=== PATIENT | female | born 1955 | race Caucasian/White ===

== ENCOUNTER 2023-07-15 12:20 | Emergency (ER) | payer OTHER, SELFPAY ==
[2023-07-15 12:23] VITALS: BP 144/89; PULSE 103; RESP 18; TEMP 36.4; O2SAT 99; BMI 45.7
--- NOTE | 2023-07-15 12:34 | XR_ITS ---
The [address] [address] Patient Name: LUCHO GABRIEL MRN: [id number] date: 1955 Sex: F Assigned Patient Location: ER Current Patient Location: ER Accession/Order Number: [id number] Exam Date: 07/15/2023 12:45 Report Date: 07/15/2023 13:25 At the request of: SHELLI ETIENNE Procedure: XR chest 1V EXAMINATION: XR chest 1V HISTORY: edema COMPARISON: XR abdomen with PA chest 10/16/2019 FINDINGS: LUNGS: Mild opacities within the lateral left lung base obscuring the costophrenic angle. VASCULATURE: No increased pulmonary vasculature. PLEURA: No pneumothorax, effusion, or pleural thickening. CARDIAC: No cardiomegaly or cardiac silhouette abnormality. MEDIASTINUM: No visible mass or adenopathy. BONES: Mechanical fusion of the mid and lower thoracic spine. OTHER: Negative. XR/XR chest 1V IMPRESSION: 1. Mild lingular infiltrates versus atelectasis versus artifact from prominent pericardial fat pad. 2. No findings to suggest pulmonary edema. Electronically authenticated by: ROSIE CONNELLY Date: 07/15/2023 13:25
--- NOTE | 2023-07-15 12:36 | ED.GENADUL1 ---
HPI - General Adult General Chief complaint: Extremity Problem, Nontraumatic Stated complaint: LEG PAIN, BILATERAL Time Seen by Provider: 07/15/23 12:34 Source: patient Mode of arrival: ambulance History of Present Illness HPI narrative: Patient is a 67yo Who is not been out of her wheelchair for the past couple of days, is presenting to the Emergency Room with urinary and stool incontinence and generalized weakness. Patient has not left the house in over a year secondary to fear of COVID. Patient has bilateral lower extremity chronic edema, chronic lower extremity wounds. Patient has extremely foul smelling odor. Patient came in by EMS. . All systems are negative except as noted/marked. All systems reviewed and otherwise negative. . Nurses note and vital signs reviewed and patient is not hypoxic. General: The patient appears well and in no apparent distress. Patient is resting comfortably on cart. Patient is not toxic, lethargic, or listless Skin: Warm, dry, no pallor noted. There is no rash noted. No petechiae, purpura. Head: Normocephalic, atraumatic Eye: Normal conjunctiva, no drainage, EOMI. PERRL Ears, Nose, Mouth, and Throat: oral mucosa is moist. Nares patent. Mouth without vesicles. Cardiovascular: Regular Rate and Rhythm, no murmur, gallop, rub Respiratory: Patient is in no distress, no accessory muscle use, lungs are clear to auscultation, no wheezing, rales or rhonchi Back: non-tender, no CVA tenderness bilaterally to percussion. No CT LS midline pain GI: soft, no tenderness to palpation, no masses appreciated. No rebound, guarding, or rigidity noted. No flank pain bilateral, No distention Musculoskeletal: Patient has full range of motion of all of the extremities, no motor, sensory, or focal neurological deficits Neurological: A&O x3, normal speech Psychiatric: Cooperative Related Data Allergies Allergy/AdvReac Type Severity Reaction Status Date / Time No Known Drug Allergies Allergy Verified 07/15/23 12:28 Exam Constitutional Vital Signs, click to edit/add: Last Vital Signs Temp 97.7 F 07/15/23 17:02 Pulse 95 H 07/15/23 18:55 Resp 18 07/15/23 18:55 BP 106/62 07/15/23 18:55 Pulse Ox 98 07/15/23 18:55 O2 Del Method Room Air 07/15/23 18:55 Course Vital Signs Vital signs: Vital Signs Temperature 97.5 F L 07/15/23 12:23 Pulse Rate 103 H 07/15/23 12:23 Respiratory Rate 18 07/15/23 12:23 Blood Pressure 144/89 H 07/15/23 12:23 Pulse Oximetry 99 07/15/23 12:23 Oxygen Delivery Method Room Air 07/15/23 12:23 Temperature 97.7 F 07/15/23 17:02 Pulse Rate 95 H 07/15/23 18:55 Respiratory Rate 18 07/15/23 18:55 Blood Pressure 106/62 07/15/23 18:55 Pulse Oximetry 98 07/15/23 18:55 Oxygen Delivery Method Room Air 07/15/23 18:55 Medical Decision Making Lab Data Labs: Lab Results 07/15/23 07/15/23 07/15/23 Range/Units 12:43 14:00 17:16 WBC 19.0 H (4.0-11.0) 10^3/uL RBC 5.21 (4.20-5.40) 10^6/uL Hgb 12.6 (12.0-16.0) g/dL Hct 43.1 (36.0-48.0) % MCV 82.7 (81.0-99.0) fL MCH 24.2 L (26.7-34.0) pg MCHC 29.2 L (29.9-35.2) g/dL RDW 18.2 H (11.0-15.0) % Plt Count 571 H (150-450) 10^3/uL MPV 9.5 (9.5-13.5) fL Neut % (Auto) 84.2 H (43.0-75.0) % Lymph % (Auto) 8.2 L (20.5-60.0) % [place] % (Auto) 4.2 (1.7-12.0) % Eos % (Auto) 1.2 (0.9-7.0) % Baso % (Auto) 0.5 (0.2-2.0) % Neut # (Auto) 16.0 H (1.4-6.5) 10^3/uL Lymph # (Auto) 1.6 (1.2-3.8) 10^3/uL [place] # (Auto) 0.8 (0.3-0.8) 10^3/uL Eos # (Auto) 0.2 (0.0-0.7) 10^3/uL Baso # (Auto) 0.1 (0.0-0.1) 10^3/uL Abs Immat Gran (auto) 0.32 H (0.00-0.03) 10^3/uL Imm/Tot Granulo (auto) 1.7 H (0.0-0.5) % VBG pH 7.121 L (7.330-7.430) VBG pCO2 27.7 L (40.0-52.0) mmHg Sodium 131 L 134 L (136-145) mmol/L Potassium 5.7 H 5.4 H (3.5-5.1) mmol/L Chloride 98 102 (98-107) mmol/L Carbon Dioxide 11.8 L 13.1 L (21.0-32.0) mmol/L Anion Gap 26.9 24.3 BUN 121.0 H* 122.0 H* (7.0-18.0) mg/dL Creatinine 6.24 H* 5.59 H* (0.55-1.02) mg/dL Est GFR ( Amer) 8 L 9 L (>=60) Est GFR (Non-Af Amer) 7 L 8 L (>=60) BUN/Creatinine Ratio 19.4 21.8 Glucose 109 H 101 (74-106) mg/dL Calcium 9.3 7.9 L (8.5-10.1) mg/dL Magnesium 2.8 H (1.8-2.4) mg/dL Total Bilirubin 0.4 (0.2-1.0) mg/dL AST 20 (15-37) U/L ALT 23 (14-59) U/L Alkaline Phosphatase 191 H (46-116) U/L Total Creatine Kinase 18 L (26-192) U/L NT-Pro-B Natriuret Pep 560.0 (<=900.0) pg/mL Total Protein 8.4 H (6.4-8.2) g/dL Albumin 2.7 L (3.4-5.0) g/dL Globulin 5.7 g/dL Albumin/Globulin Ratio 0.5 Lipase 709.0 H (73.0-393.0) U/L Urine Color Brown A (YELLOW) Urine Clarity Clear (CLEAR) Urine pH 6.0 (5.0-9.0) Ur Specific [place] 1.015 (1.005-1.025) Urine Protein 100 A (NEG/TRACE) mg/dL Urine Glucose (UA) Negative (NEGATIVE) mg/dL Urine Ketones Trace A (NEGATIVE) mg/dL Urine Occult Blood Large A (NEGATIVE) Urine Nitrite Positive A (NEGATIVE) Urine Bilirubin Negative (NEGATIVE) Urine Urobilinogen 0.2 (0.2-1.0) EU/dL Ur Leukocyte Esterase Moderate A (NEGATIVE) Urine RBC 10-20 A (0-2) #/HPF Urine WBC >100 A (NONE SEEN) #/HPF Ur Squamous Epith Cells Moderate A (NONE/RARE) #/LPF Urine Crystals None seen (None Seen) #/HPF Urine Bacteria Small A (NONE SEEN) #/HPF Urine Casts None seen (NONE SEEN) #/LPF Urine Mucus Trace A (NONE SEEN) Ur Culture Indicated? Yes SARS-CoV-2 (PCR) Negative (NEGATIVE) SARS-CoV-2 RNA (BRITT) Not detected (NOT DETECTE) Discharge Plan Discharge Chief Complaint: Extremity Problem, Nontraumatic Clinical Impression: Decubitus ulcer of right leg, stage 2, Decubitus ulcer of left leg, stage 3, Decubitus ulcer of sacral region, stage 2, Hyponatremia, Metabolic acidosis, Hyperkalemia, Intra-abdominal lymphadenopathy Acute renal failure Qualifiers: Acute renal failure type: unspecified Qualified Code(s): N17.9 - Acute kidney failure, unspecified Patient Disposition: [facility] Time of Disposition Decision: 17:14 Discharge Location: [facility] Condition: Good Mode of Transportation: EMS Discharge Date/Time: 07/15/23 19:28
[2023-07-15 12:51] LABS: Basophils Absolute Auto 0.1 10^3/uL (0.0-0.1); Basophils Percent Auto 0.5 % (0.2-2.0); Eosinophils Absolute Auto 0.2 10^3/uL (0.0-0.7); Eosinophils Percent Auto 1.2 % (0.9-7.0); Hematocrit 43.1 % (36.0-48.0); Hemoglobin 12.6 g/dL (12.0-16.0); Immature Granulocytes Abs Auto 0.32 10^3/uL (0.00-0.03); Immature Granulocytes Pct Auto 1.7 % (0.0-0.5); Lymphocytes Absolute Auto 1.6 10^3/uL (1.2-3.8); Lymphocytes Percent Auto 8.2 % (20.5-60.0); Mean Corpuscular HGB Conc 29.2 g/dL (29.9-35.2); Mean Corpuscular Hemoglobin 24.2 pg (26.7-34.0); Mean Corpuscular Volume 82.7 fL (81.0-99.0); Mean Platelet Volume 9.5 fL (9.5-13.5); Monocytes Absolute Auto 0.8 10^3/uL (0.3-0.8); Monocytes Percent Auto 4.2 % (1.7-12.0); Neutrophils Percent Auto 84.2 % (43.0-75.0); Platelet Count 571 10^3/uL (150-450); Red Blood Count 5.21 10^6/uL (4.20-5.40); Red Cell Distribution Width 18.2 % (11.0-15.0)
[2023-07-15 12:53] LABS: PCO2 VBG 27.7 mmHg (40.0-52.0); pH VBG 7.121 (7.330-7.430)
[2023-07-15] MEDS: 0.9 % SODIUM CHLORIDE 1,000 ML 999 ML IV (12:54)
[2023-07-15 13:14] LABS: Alanine Aminotransferase 23 U/L (14-59); Albumin Globulin Ratio 0.5; Albumin Level 2.7 g/dL (3.4-5.0); Alkaline Phosphatase 191 U/L (46-116); Anion Gap 26.9; Aspartate Amino Transferase 20 U/L (15-37); BUN Creatinine Ratio 19.4; Bilirubin Total 0.4 mg/dL (0.2-1.0); Calcium 9.3 mg/dL (8.5-10.1); Carbon Dioxide 11.8 mmol/L (21.0-32.0); Chloride 98 mmol/L (98-107); Estimated GFR (African America 8 (>=60); Estimated GFR (Non-African Ame 7 (>=60); Globulin 5.7 g/dL; Glucose 109 mg/dL (74-106); Magnesium 2.8 mg/dL (1.8-2.4); Potassium 5.7 mmol/L (3.5-5.1); Sodium 131 mmol/L (136-145); Total Protein 8.4 g/dL (6.4-8.2)
[2023-07-15 13:36] LABS: Creatine Kinase 18 U/L (26-192)
--- NOTE | 2023-07-15 13:39 | W.PM.WC ---
Wound Consult Note Assessment and Plan (1) Decubitus ulcer of right leg, stage 2: (2) Decubitus ulcer of left leg, stage 3: (3) Decubitus ulcer of sacral region, stage 2: Plan Phone call received from Dr. Rodríguez to see patient in emergency department. Patient has been homebound for years and has chronic ulcers on bilateral lower extremities. Upon assessment, patient with large bilateral posterior lower leg ulcers, left worse than right, that are draining and odorous. Bedside RN reports swabs have been taken. Unable to take photos in the emergency department due to technical issues. Patient has lymphedema in both lower extremities, and bilateral feet are puffy and excoriated in creases. Bilateral toenails are elongated and thick. Right posterior lower leg ulcer is large, encompassing almost the entire posterior calf. Marbled wound bed with pink and yellow tissue. Left posterior lower leg ulcer is large as well, encompassing almost entire posterior calf. Marbled wound bed with significant stringy slough tissue to the proximal wound bed. I would recommend Dr. Hoang and Dr. Platt evaluate this patient if a formal surgical debridement is needed. Periwound to both legs has erythema and warmth noted. The ulcers are painful. Anterior legs with cobblestone textured dry skin. Bilateral heels intact. Patient has linear abrasions to bilateral buttocks as well from incontinence and shearing. She reports pain to this area with pressure. Skin blanches slowly at this time. Patient is at risk for developing worsening ulcerations to this area. Discussed plan with patient and her visitors. Educated on skin care, risk of open ulcers, treatment plan at this time, and lymphedema management. Discussed orders with JULIANNE Arreguin. Sent message to Dr. Hoang and Dr. Platt regarding treatment needs as well. Will complete nail care on this patient once she is admitted to the hospital and antibiotics started. Please call [phone] with any questions or concerns.
--- NOTE | 2023-07-15 13:58 | ED_ITS ---
Documented by User: JULIANNE Lira 07/15/23 17:43 HPI - General Adult General Chief complaint: Extremity Problem, Nontraumatic Stated complaint: LEG PAIN, BILATERAL Time Seen by Provider: 07/15/23 12:34 Source: patient Mode of arrival: ambulance History of Present Illness HPI narrative: 67-year-old female who is morbidly obese at 114 kg presents by squad for feeling weak. She mostly sits in a recliner and only uses a walker to get around her house and she states that she has not been out of her house in a little over a year as she was scared about COVID. She does have visitors come in. She states that she does not go outside. She states that she has wounds on both of her legs for about a year. She states that the wounds have been getting worse over the past 3 weeks. She has had watery diarrhea for the past 3 weeks. She has been drinking 2-3 bottles of water a day and has only had a meal a day as she states that she was not very hungry. She is also complaining of rhinorrhea. Sh e states recently she had some acid reflux and left upper quadrant pain, but this has resolved. Denies fever, cough, dizziness, back pain, dysuria, n/v, SOB or CP Related Data Allergies Allergy/AdvReac Type Severity Reaction Status Date / Time No Known Drug Allergies Allergy Verified 07/15/23 12:28 Review of Systems ROS Status of ROS 10 or more systems reviewed and unremarkable except as noted in history and below Exam Narrative Exam Narrative: General: A&Ox3, no distress, talking in full an complete sentences, morbidly obese skin: warm, dry, 10 x 10 cm area to the left mid distal leg with a foul-smelling slough but seems consistent with stage III ulcer, 5 x 10 erythematous area that appears to be stage II ulcer to the right mid distal leg without foul odor, stage II ulcer to the upper buttock area without drainage or foul odor head: normocephalic, atraumatic eyes: EOMI nose: nares patent neck: supple, trachea midline cardiac: +S1/S1. no murmur respiratory: lungs CTA, non-labored, no wheezing, no retractions abdomen: soft, NT extremities: FROM x 4, strength +5/5 neuro: A&Ox3 psych: appropriate mood and affect, cooperative Constitutional Vital Signs, click to edit/add: Last Vital Signs Temp 97.7 F 07/15/23 17:02 Pulse 95 H 07/15/23 18:55 Resp 18 07/15/23 18:55 BP 106/62 07/15/23 18:55 Pulse Ox 98 07/15/23 18:55 O2 Del Method Room Air 07/15/23 18:55 Course Vital Signs Vital signs: Vital Signs Temperature 97.5 F L 07/15/23 12:23 Pulse Rate 103 H 07/15/23 12:23 Respiratory Rate 18 07/15/23 12:23 Blood Pressure 144/89 H 07/15/23 12:23 Pulse Oximetry 99 07/15/23 12:23 Oxygen Delivery Method Room Air 07/15/23 12:23 Temperature 97.7 F 07/15/23 17:02 Pulse Rate 95 H 07/15/23 18:55 Respiratory Rate 18 07/15/23 18:55 Blood Pressure 106/62 07/15/23 18:55 Pulse Oximetry 98 07/15/23 18:55 Oxygen Delivery Method Room Air 07/15/23 18:55 Medical Decision Making MDM Narrative Medical decision making narrative: Wound culture pending from the left leg. Wound nurse came into the ER and suggested to put Santyl to the left leg, bacitracin to the right leg and a Triad cream to the buttocks area. Wound care will be consulted inpatient. Patient is complaining of pain to her legs will be given Dilaudid. Creatinine 6.24, sodium 121 with a potassium of 5.7. She is given IV fluids. She states that she is not aware of any kidney issues. Magnesium 2.8. Last labs on file from 3 years ago. Creatinine at that time was 1.23-2.31, but was 6.08 around this time. She also had elevated LFTs at this time. WBC 19. VBG pH 7.12. Sodium 131, potassium 5.7, bicarb 11.8, creatinine 6.24, glucose 109, magnesium 2.8, alk phos 191, CK 18 with a lipase of 709. Patient given a dose of Lokelma. She is given vanco and Zosyn for the infected left leg ulcer. COVID-negative. UA sample appears contaminated as there is moderate amount of epithelial cells, but she is receiving IV antibiotics for her infection and this will cover her UTI. No other significant lab normalities. She is ordered an additional liter of saline. Nurse informs me that patient stated that she takes tylenol PM every couple hours for 2-3 days. She states that she has been doing this for couple days and usually takes 800 mg Motrin twice a day. Final read of CT abdomen pelvis without contrast shows an obstructing 1 to 2 mm stone in the distal right ureter with minimal right-sided hydronephrosis. This also shows a mild intra- abdominal adenopathy with a differential including infectious/inflammatory process, metastasis, lymphoma or leukemia. Dr. Rodríguez discussed the case with the hospitalist who declines admission and wishes to be transferred to a facility with nephrology. Case discussed with Dr. Davis, hospitalist at [facility], who accepts patient. I attempted to give a full report to the hospitalist, Dr Davis, and he stopped me while I was speaking and did not receive a full report. The only information he received was the patient has been in her house for over a year, acute renal failure and infected ulcer with IV ATBs. Repeat sodium 134, potassium 5.4, creatinine 5.59. Critical care time greater than 35 minutes thats separate from other billable procedures Medical Records Medical records reviewed: Yes I reviewed the patient's medical records Lab Data Labs: Lab Results 07/15/23 07/15/23 07/15/23 Range/Units 12:43 14:00 17:16 WBC 19.0 H (4.0-11.0) 10^3/uL RBC 5.21 (4.20-5.40) 10^6/uL Hgb 12.6 (12.0-16.0) g/dL Hct 43.1 (36.0-48.0) % MCV 82.7 (81.0-99.0) fL MCH 24.2 L (26.7-34.0) pg MCHC 29.2 L (29.9-35.2) g/dL RDW 18.2 H (11.0-15.0) % Plt Count 571 H (150-450) 10^3/uL MPV 9.5 (9.5-13.5) fL Neut % (Auto) 84.2 H (43.0-75.0) % Lymph % (Auto) 8.2 L (20.5-60.0) % [place] % (Auto) 4.2 (1.7-12.0) % Eos % (Auto) 1.2 (0.9-7.0) % Baso % (Auto) 0.5 (0.2-2.0) % Neut # (Auto) 16.0 H (1.4-6.5) 10^3/uL Lymph # (Auto) 1.6 (1.2-3.8) 10^3/uL [place] # (Auto) 0.8 (0.3-0.8) 10^3/uL Eos # (Auto) 0.2 (0.0-0.7) 10^3/uL Baso # (Auto) 0.1 (0.0-0.1) 10^3/uL Abs Immat Gran (auto) 0.32 H (0.00-0.03) 10^3/uL Imm/Tot Granulo (auto) 1.7 H (0.0-0.5) % VBG pH 7.121 L (7.330-7.430) VBG pCO2 27.7 L (40.0-52.0) mmHg Sodium 131 L 134 L (136-145) mmol/L Potassium 5.7 H 5.4 H (3.5-5.1) mmol/L Chloride 98 102 (98-107) mmol/L Carbon Dioxide 11.8 L 13.1 L (21.0-32.0) mmol/L Anion Gap 26.9 24.3 BUN 121.0 H* 122.0 H* (7.0-18.0) mg/dL Creatinine 6.24 H* 5.59 H* (0.55-1.02) mg/dL Est GFR ( Amer) 8 L 9 L (>=60) Est GFR (Non-Af Amer) 7 L 8 L (>=60) BUN/Creatinine Ratio 19.4 21.8 Glucose 109 H 101 (74-106) mg/dL Calcium 9.3 7.9 L (8.5-10.1) mg/dL Magnesium 2.8 H (1.8-2.4) mg/dL Total Bilirubin 0.4 (0.2-1.0) mg/dL AST 20 (15-37) U/L ALT 23 (14-59) U/L Alkaline Phosphatase 191 H (46-116) U/L Total Creatine Kinase 18 L (26-192) U/L NT-Pro-B Natriuret Pep 560.0 (<=900.0) pg/mL Total Protein 8.4 H (6.4-8.2) g/dL Albumin 2.7 L (3.4-5.0) g/dL Globulin 5.7 g/dL Albumin/Globulin Ratio 0.5 Lipase 709.0 H (73.0-393.0) U/L Urine Color Brown A (YELLOW) Urine Clarity Clear (CLEAR) Urine pH 6.0 (5.0-9.0) Ur Specific [place] 1.015 (1.005-1.025) Urine Protein 100 A (NEG/TRACE) mg/dL Urine Glucose (UA) Negative (NEGATIVE) mg/dL Urine Ketones Trace A (NEGATIVE) mg/dL Urine Occult Blood Large A (NEGATIVE) Urine Nitrite Positive A (NEGATIVE) Urine Bilirubin Negative (NEGATIVE) Urine Urobilinogen 0.2 (0.2-1.0) EU/dL Ur Leukocyte Esterase Moderate A (NEGATIVE) Urine RBC 10-20 A (0-2) #/HPF Urine WBC >100 A (NONE SEEN) #/HPF Ur Squamous Epith Cells Moderate A (NONE/RARE) #/LPF Urine Crystals None seen (None Seen) #/HPF Urine Bacteria Small A (NONE SEEN) #/HPF Urine Casts None seen (NONE SEEN) #/LPF Urine Mucus Trace A (NONE SEEN) Ur Culture Indicated? Yes SARS-CoV-2 (PCR) Negative (NEGATIVE) SARS-CoV-2 RNA (BRITT) Not detected (NOT DETECTE) Discharge Plan Discharge Chief Complaint: Extremity Problem, Nontraumatic Clinical Impression: Decubitus ulcer of right leg, stage 2, Decubitus ulcer of left leg, stage 3, Decubitus ulcer of sacral region, stage 2, Hyponatremia, Metabolic acidosis, Hyperkalemia, Intra-abdominal lymphadenopathy, Pyuria, Sepsis Acute renal failure Qualifiers: Acute renal failure type: unspecified Qualified Code(s): N17.9 - Acute kidney failure, unspecified Patient Disposition: [facility] Time of Disposition Decision: 17:14 Discharge Location: [facility] Condition: Serious Mode of Transportation: EMS Discharge Date/Time: 07/15/23 19:28 Documented by User: Sixto Rodríguez MD 07/15/23 20:05 HPI - General Adult General Chief complaint: Extremity Problem, Nontraumatic Stated complaint: LEG PAIN, BILATERAL Time Seen by Provider: 07/15/23 12:34 History of Present Illness HPI narrative: 67-year-old female who is morbidly obese at 114 kg presents by squad for feeling weak. She mostly sits in a recliner and only uses a walker to get around her house and she states that she has not been out of her house in a little over a year as she was scared about COVID. She does have visitors come in. She states that she does not go outside. She states that she has wounds on both of her legs for about a year. She states that the wounds have been getting worse over the past 3 weeks. She has had watery diarrhea for the past 3 weeks. She has been drinking 2-3 bottles of water a day and has only had a meal a day as she states that she was not very hungry. She is also complaining of rhinorrhea. She states recently she had some acid reflux and left upper quadrant pain, but this has resolved. Denies fever, cough, dizziness, back pain, dysuria, n/v, SOB or CP. Patient normally takes 800 mg of Motrin in the morning and in the evening, patient's been taking aspirin and Motrin every 2 hours in the past couple days secondary to leg pain. Patient has had urine in stool incontinence, patient came in by EMS, covered in urine and stool. Related Data Allergies Allergy/AdvReac Type Severity Reaction Status Date / Time No Known Drug Allergies Allergy Verified 07/15/23 12:28 Exam Constitutional Vital Signs, click to edit/add: Last Vital Signs Temp 97.7 F 07/15/23 17:02 Pulse 95 H 07/15/23 18:55 Resp 18 07/15/23 18:55 BP 106/62 09/25/23 18:55 Pulse Ox 98 07/15/23 18:55 O2 Del Method Room Air 07/15/23 18:55 Course Vital Signs Vital signs: Vital Signs Temperature 97.5 F L 07/15/23 12:23 Pulse Rate 103 H 07/15/23 12:23 Respiratory Rate 18 07/15/23 12:23 Blood Pressure 144/89 H 07/15/23 12:23 Pulse Oximetry 99 07/15/23 12:23 Oxygen Delivery Method Room Air 07/15/23 12:23 Temperature 97.7 F 07/15/23 17:02 Pulse Rate 95 H 07/15/23 18:55 Respiratory Rate 18 07/15/23 18:55 Blood Pressure 106/62 07/15/23 18:55 Pulse Oximetry 98 07/15/23 18:55 Oxygen Delivery Method Room Air 07/15/23 18:55 Medical Decision Making MDM Narrative Medical decision making narrative: Wound culture pending from the left leg. Wound nurse came into the ER and suggested to put Santyl to the left leg, bacitracin to the right leg and a Triad cream to the buttocks area. Wound care will be consulted inpatient. Patient is complaining of pain to her legs will be given Dilaudid. Creatinine 6.24, sodium 121 with a potassium of 5.7. She is given IV fluids. She states that she is not aware of any kidney issues. Magnesium 2.8. Last labs on file from 3 years ago. Creatinine at that time was 1.23-2.31, but was 6.08 around this time. She also had elevated LFTs at this time. WBC 19. VBG pH 7.12. Sodium 131, potassium 5.7, bicarb 11.8, creatinine 6.24, glucose 109, magnesium 2.8, alk phos 191, CK 18 with a lipase of 709. Patient given a dose of Lokelma. She is given vanco and Zosyn for the infected left leg ulcer. COVID-negative. UA sample appears contaminated as there is moderate amount of epithelial cells, but she is receiving IV antibiotics for her infection and this will cover her UTI. No other significant lab normalities. She is ordered an additional liter of saline. Nurse informs me that patient stated that she takes tylenol PM every couple hours for 2-3 days. She states that she has been doing this for couple days and usually takes 800 mg Motrin twice a day. Final read of CT abdomen pelvis without contrast shows an obstructing 1 to 2 mm stone in the distal right ureter with minimal right-sided hydronephrosis. This also shows a mild intra- abdominal adenopathy with a differential including infectious/inflammatory process, metastasis, lymphoma or leukemia. Dr. Rodríguez discussed the case with the hospitalist Dr German, who declines admission and wishes to be transferred to a facility with nephrology. Case discussed with Dr. Davis, hospitalist at [facility], who accepts patient. I attempted to give a full report to the hospitalist, Dr Davis, and he stopped me while I was speaking and did not receive a full report. The only information he received was the patient has been in her house for over a year, acute renal failure and infected leg ulcer with IV ATBs. Repeat sodium 134, potassium 5.4, creatinine 5.59. BUN remains elevated. Critical care time greater than 35 minutes thats separate from other billable procedures Critical care time 35 minutes exclusive from separate billable procedures that were performed. The following was considered in the determination of critical care but not limited to the level of medical decision making, intensive cardiac and/or respiratory monitoring, frequent vital sign monitoring, evaluation of laboratory studies, evaluation of radiographic studies, oxygen monitoring, and constant monitoring and speaking to family at bedside Lab Data Lab results reviewed: Yes I reviewed the patient's lab results Labs: Lab Results 07/15/23 07/15/23 07/15/23 Range/Units 12:43 14:00 17:16 WBC 19.0 H (4.0-11.0) 10^3/uL RBC 5.21 (4.20-5.40) 10^6/uL Hgb 12.6 (12.0-16.0) g/dL Hct 43.1 (36.0-48.0) % MCV 82.7 (81.0-99.0) fL MCH 24.2 L (26.7-34.0) pg MCHC 29.2 L (29.9-35.2) g/dL RDW 18.2 H (11.0-15.0) % Plt Count 571 H (150-450) 10^3/uL MPV 9.5 (9.5-13.5) fL Neut % (Auto) 84.2 H (43.0-75.0) % Lymph % (Auto) 8.2 L (20.5-60.0) % [place] % (Auto) 4.2 (1.7-12.0) % Eos % (Auto) 1.2 (0.9-7.0) % Baso % (Auto) 0.5 (0.2-2.0) % Neut # (Auto) 16.0 H (1.4-6.5) 10^3/uL Lymph # (Auto) 1.6 (1.2-3.8) 10^3/uL [place] # (Auto) 0.8 (0.3-0.8) 10^3/uL Eos # (Auto) 0.2 (0.0-0.7) 10^3/uL Baso # (Auto) 0.1 (0.0-0.1) 10^3/uL Abs Immat Gran (auto) 0.32 H (0.00-0.03) 10^3/uL Imm/Tot Granulo (auto) 1.7 H (0.0-0.5) % VBG pH 7.121 L (7.330-7.430) VBG pCO2 27.7 L (40.0-52.0) mmHg Sodium 131 L 134 L (136-145) mmol/L Potassium 5.7 H 5.4 H (3.5-5.1) mmol/L Chloride 98 102 (98-107) mmol/L Carbon Dioxide 11.8 L 13.1 L (21.0-32.0) mmol/L Anion Gap 26.9 24.3 BUN 121.0 H* 122.0 H* (7.0-18.0) mg/dL Creatinine 6.24 H* 5.59 H* (0.55-1.02) mg/dL Est GFR ( Amer) 8 L 9 L (>=60) Est GFR (Non-Af Amer) 7 L 8 L (>=60) BUN/Creatinine Ratio 19.4 21.8 Glucose 109 H 101 (74-106) mg/dL Calcium 9.3 7.9 L (8.5-10.1) mg/dL Magnesium 2.8 H (1.8-2.4) mg/dL Total Bilirubin 0.4 (0.2-1.0) mg/dL AST 20 (15-37) U/L ALT 23 (14-59) U/L Alkaline Phosphatase 191 H (46-116) U/L Total Creatine Kinase 18 L (26-192) U/L NT-Pro-B Natriuret Pep 560.0 (<=900.0) pg/mL Total Protein 8.4 H (6.4-8.2) g/dL Albumin 2.7 L (3.4-5.0) g/dL Globulin 5.7 g/dL Albumin/Globulin Ratio 0.5 Lipase 709.0 H (73.0-393.0) U/L Urine Color Brown A (YELLOW) Urine Clarity Clear (CLEAR) Urine pH 6.0 (5.0-9.0) Ur Specific [place] 1.015 (1.005-1.025) Urine Protein 100 A (NEG/TRACE) mg/dL Urine Glucose (UA) Negative (NEGATIVE) mg/dL Urine Ketones Trace A (NEGATIVE) mg/dL Urine Occult Blood Large A (NEGATIVE) Urine Nitrite Positive A (NEGATIVE) Urine Bilirubin Negative (NEGATIVE) Urine Urobilinogen 0.2 (0.2-1.0) EU/dL Ur Leukocyte Esterase Moderate A (NEGATIVE) Urine RBC 10-20 A (0-2) #/HPF Urine WBC >100 A (NONE SEEN) #/HPF Ur Squamous Epith Cells Moderate A (NONE/RARE) #/LPF Urine Crystals None seen (None Seen) #/HPF Urine Bacteria Small A (NONE SEEN) #/HPF Urine Casts None seen (NONE SEEN) #/LPF Urine Mucus Trace A (NONE SEEN) Ur Culture Indicated? Yes SARS-CoV-2 (PCR) Negative (NEGATIVE) SARS-CoV-2 RNA (BRITT) Not detected (NOT DETECTE) Discharge Plan Discharge Chief Complaint: Extremity Problem, Nontraumatic Clinical Impression: Decubitus ulcer of right leg, stage 2, Decubitus ulcer of left leg, stage 3, Decubitus ulcer of sacral region, stage 2, Hyponatremia, Metabolic acidosis, Hyperkalemia, Intra-abdominal lymphadenopathy, Pyuria, Sepsis Acute renal failure Qualifiers: Acute renal failure type: unspecified Qualified Code(s): N17.9 - Acute kidney failure, unspecified Patient Disposition: [facility] Time of Disposition Decision: 17:14 Discharge Location: [facility] Condition: Serious Mode of Transportation: EMS Discharge Date/Time: 07/15/23 19:28
[2023-07-15] MEDS: PIPERACILLIN SODIUM/TAZOBACTAM 3.375 GM in 0.9 % SODIUM CHLORIDE 50 ML IV (14:11)
[2023-07-15 14:19] LABS: Bilirubin Urine NEGATIVE (NEGATIVE); Blood Urine LARGE (NEGATIVE); Clarity Urine CLEAR (CLEAR); Color Urine BROWN (YELLOW); Glucose Urine UA NEGATIVE (NEGATIVE); Ketones Urine TRACE mg/dL (NEGATIVE); Leukocyte Esterase Urine MODERATE (NEGATIVE); Nitrite Urine POSITIVE (NEGATIVE); Protein Urine 100 mg/dL (NEG/TRACE); Specific Gravity Urine 1.015 (1.005-1.025); Urobilinogen Urine 0.2 EU/dL (0.2-1.0)
[2023-07-15] MEDS: COLLAGENASE CLOSTRIDIUM HIST. 250 UNITS/GM 30 GRAM TUBE 1 APPLIC TOPICAL (14:20)
[2023-07-15] MEDS: SODIUM ZIRCONIUM CYCLOSILICATE 10 GM POWD.PACK PO (14:21)
[2023-07-15 14:27] LABS: Bacteria Urine SMALL #/HPF (NONE SEEN); Cast Seen? NONE SEEN #/LPF (NONE SEEN); Crystals Seen? None Seen #/HPF (None Seen); Mucus Urine TRACE (NONE SEEN); Squamous Epithelial Cell Urine MODERATE #/LPF (NONE/RARE); Urine Culture Indicated YES; WBC Urine >100 #/HPF (NONE SEEN)
[2023-07-15 14:30] LABS: SARS-CoV-2 Ag NEGATIVE (NEGATIVE)
[2023-07-15] MEDS: HYDROMORPHONE HCL 0.5 MG/0.5 ML SYRINGE IV ×2 (14:45→18:44)
[2023-07-15] MEDS: VANCOMYCIN HCL 1,500 MG in 0.9 % SODIUM CHLORIDE 500 ML 250 MG IV (14:49)
--- NOTE | 2023-07-15 14:59 | CT_ITS ---
[address] [address] Patient Name: LUCHO GABRIEL MRN: [id number] date: 1955 Sex: F Assigned Patient Location: ER Current Patient Location: ER Accession/Order Number: [id number] Exam Date: 07/15/2023 14:55 Report Date: 07/15/2023 15:23 At the request of: MONICA MANZANARES Procedure: CT abdomen pelvis wo con EXAM: CT abdomen pelvis wo con; [id number] REASON FOR EXAM: r/o pancreatitis TECHNIQUE: Helical CT images of the abdomen and pelvis were obtained without IV contrast. Multiplanar reformats were generated at the scanner. Dose reduction technique used: Automated exposure control and/or adjustment of the mA and/or kV according to patient size and/or use of iterative reconstruction technique. COMPARISON: None. FINDINGS: Note: Compared with a contrast-enhanced CT exam, noncontrast images are relatively insensitive for detection of solid organ and vascular abnormalities. Visualized Chest: No pleural effusion or any significant pulmonary findings. Abdomen: Liver: Within normal limits. Gallbladder: Resected. Bile Ducts: No significant biliary ductal dilatation. Pancreas: No ductal dilatation or inflammatory changes. Spleen: There are 2 subcentimeter hypoattenuating lesions in the spleen which are too small to further characterize though likely represent benign cysts or hemangiomas. Adrenals: No nodules. Kidneys: -Obstructing 1-2 mm stone in the distal right ureter (series 3 image 111) results in minimal right-sided hydronephrosis. -There are 2 nonobstructing stones in the right kidney which measure up to 8 mm. -Single nonobstructing stone in the left kidney measuring up to 10 mm. -Mild atrophy of the left kidney. Vascular: No aortic aneurysm. Lymph Nodes: Mild retroperitoneal and bilateral iliac chain adenopathy. For example left common iliac artery lymph node measuring 20 x 14 mm (series 3 image 85). Abdominal Wall: No hernia or mass. Pelvis: No mass or adenopathy. Bowel/Peritoneal Cavity/Mesentery: -Moderate colonic diverticulosis without evidence of acute diverticulitis. -No bowel obstruction or significant ileus. -No acute inflammatory changes. -No free air or free fluid. Musculoskeletal: No acute fracture or suspicious osseous lesion. Visualized portions of the thoracic fusion hardware are intact. No evidence of loosening or infection. CT/CT abdomen pelvis wo con IMPRESSION: 1. Obstructing 1-2 mm stone in the distal right ureter resulting in minimal right-sided hydronephrosis. 2. Additional bilateral nonobstructing stones are present. 3. Mild intra-abdominal adenopathy. Differential includes chronic infectious/inflammatory process, metastases, lymphoma, and leukemia. Recommend correlation with patient history and laboratory analysis. If there is concern for occult primary neoplasm and subsequent metastatic adenopathy then recommend PET/CT for further evaluation. 4. No imaging evidence pancreatitis. Electronically authenticated by: ABDOULAYE PARKER Date: 07/15/2023 15:23
--- NOTE | 2023-07-15 15:07 | PC.NURSE ---
Bilat leg wounds cleansed and dressed per nursing judgement. Help by another RN. Shanta swab completed.
[2023-07-15 15:16] VITALS: BP 135/65; PULSE 70; RESP 20; O2SAT 98
[2023-07-15] MEDS: 0.9 % SODIUM CHLORIDE 1,000 ML 1000 ML IV (15:47)
[2023-07-15 16:17] VITALS: BP 116/71; PULSE 82; RESP 18; O2SAT 100
[2023-07-15 16:39] LABS: SARS-CoV-2 NAA NOT DETECTED (NOT DETECTE)
[2023-07-15 17:02] VITALS: BP 133/66; PULSE 86; RESP 16; TEMP 36.5; O2SAT 99
[2023-07-15 17:33] LABS: Anion Gap 24.3; BUN Creatinine Ratio 21.8; Calcium 7.9 mg/dL (8.5-10.1); Carbon Dioxide 13.1 mmol/L (21.0-32.0); Chloride 102 mmol/L (98-107); Estimated GFR (African America 9 (>=60); Estimated GFR (Non-African Ame 8 (>=60); Glucose 101 mg/dL (74-106); Potassium 5.4 mmol/L (3.5-5.1); Sodium 134 mmol/L (136-145)
[2023-07-15 18:55] VITALS: BP 106/62; PULSE 95; RESP 18; O2SAT 98
--- NOTE | 2023-07-15 19:25 | PC.NURSE ---
Report called to Staci at [facility] [address]. [phone]
== END 2023-07-15 19:28 | disposition short-term general hospital (02) ==
PROVIDERS: Physician Assistant; Emergency Provider Emergency Medicine
DX: A41.9 Sepsis, unspecified organism (principal); L89.892 Pressure ulcer of other site, stage 2; L89.893 Pressure ulcer of other site, stage 3; L89.152 Pressure ulcer of sacral region, stage 2; E87.1 Hypo-osmolality and hyponatremia; E87.5 Hyperkalemia; R82.81 Pyuria; R59.0 Localized enlarged lymph nodes; E87.20 Acidosis, unspecified; N17.9 Acute kidney failure, unspecified; Z20.822 Contact with and (suspected) exposure to COVID-19; E66.01 Morbid (severe) obesity due to excess calories; Z68.42 Body mass index [BMI] 45.0-49.9, adult
CPT/HCPCS: 36415; 71045; 74176; 80048; 80053; 81001; 82550; 82800; 83690; 83735; 83880; 85025; 87070; 87086; 87150; 87186; 87635; 87811; 96365; 96366; 96375; 96376; 99285; J1170; J3370; U0003

== ENCOUNTER 2025-03-28 18:52 | Inpatient (IN) | payer OTHER, SELFPAY ==
[2025-03-28 19:08] VITALS: BP 122/77; PULSE 116; TEMP 36.6; O2SAT 97; BMI 57.6
--- NOTE | 2025-03-28 19:26 | XR_ITS ---
[address] [address] Patient Name: LUCHO GABRIEL MRN: [id number] date: 1955 Sex: F Assigned Patient Location: ER Current Patient Location: ED.MAIN Accession/Order Number: [id number] Exam Date: 03/28/2025 21:28 Report Date: 03/28/2025 21:30 At the request of: THELMA WHITAKER Procedure: XR chest 1V Plain film chest Single view HISTORY: Weakness COMPARISON: 07/15/2023 FINDINGS: SUPPORT DEVICES: None POSTSURGICAL CHANGES: Spinal fixation hardware HEART: Within normal limits left epicardial fat PULMONARY MISSY: Within normal limits MEDIASTINUM: Unremarkable LUNGS AND PLEURA: No acute lung process, pleural effusion or pneumothorax identified. BONY STRUCTURES: Intact ADDITIONAL FINDINGS None XR/XR chest 1V IMPRESSION: No acute process. Impression dictated by: Sixto Palomares M.D. 03/28/2025 9:30 PM Dictation Location: [employer] Electronically authenticated by: [id number] Y Date: 03/28/2025 21:30
--- NOTE | 2025-03-28 19:26 | ECG_ITS ---
The [facility] Test Date: 2025-03-28 Pat Name: LUCHO GABRIEL Department: Room: - Gender: Female [employer]: : 1955 Requested By: [id number] Order Number: [id number] Ayden MD: SONY JORDAN M.D. Measurements Intervals [place] Rate: 103 P: 90 IL: 158 QRS: 74 QRSD: 86 T: 40 QT: 316 QTc: 375 Interpretive Statements 1120 Sinus tachycardia 8102 Low QRS voltage in chest leads Possible anterior infarct - age undetermined abnormal ECG Compared to ECG 12/06/2019 02:28:46 Low QRS voltage now present Atrial fibrillation no longer present ST (T wave) deviation no longer present Electronically Signed On 03-28-2025 22:29:48 EDT by SONY JORDAN M.D.
--- NOTE | 2025-03-28 19:26 | XR_ITS ---
The [address] [address] Patient Name: LUCHO GABRIEL MRN: [id number] date: 1955 Sex: F Assigned Patient Location: ER Current Patient Location: ED.MAIN Accession/Order Number: [id number] Exam Date: 03/28/2025 21:30 Report Date: 03/28/2025 21:31 At the request of: THELMA WHITAKER Procedure: XR tibia fibula ANDRZEJ 2V 2 views of both the tibia and fibula HISTORY: Bilateral lower leg pain and weakness Soft tissue prominence. No subcutaneous air. Bony structures intact. No acute bony findings. Mild degeneration. XR/XR tibia fibula ANDRZEJ 2V IMPRESSION: Diffuse bilateral lower extremity soft tissue edema. No subcutaneous air. No acute bony findings. Impression dictated by: Sixto Palomares M.D. 03/28/2025 9:31 PM Dictation Location: [place] [address] Electronically authenticated by: [id number] Y Date: 03/28/2025 21:31
--- NOTE | 2025-03-28 19:30 | ED.GENADUL1 ---
Documented by User: JULIANNE Maria 03/28/25 21:19 HPI HPI - General Adult General Chief complaint: Skin/Abscess/Foreign Body Stated complaint: Lower Pain Time Seen by Provider: 03/28/25 19:18 Source: patient Mode of arrival: ambulance Limitations: physical limitation History of Present Illness HPI narrative: Patient is a 69-year-old female presents to the ER via EMS for evaluation of bilateral leg sores. Long standing history of lymphedema. Patient states she had Similar sores several months ago and was seen here and transferred to [facility] where she was eventually discharged to a nursing facility and then with home health. Patient admits her legs were doing well when home health nurse was coming but they have not been present for over a month. Patient states she has a niece who is a personal care service provider and has been helping her but notes that her legs continue to get worse due to her immobility. Patient states she feels generally weak and cannot care for herself. She arrives via EMS with stool in her depends and dependent source in both lower legs. Patient states prior to this she would care for herself and could even stand to cook her meals. She has not been able to do this in some time. Patient denies any fevers or chills. She denies any chest pain or shortness of breath but states she feels generally weak. She denies any abdominal pain. She reports a financial hardship that the halfway was making her pay [id number] to stay there for care prior to be taken home. Onset (ago): month(s) Location: Reports left, right and lower extremity Severity: mild Quality: Reports aching Pain Consistency: Reports constant Relieving factors: Reports none Exacerbating factors: Reports none Related Data Home Medications ?Medication ?Instructions ?Recorded ?Confirmed aspirin 81 mg capsule 81 mg PO DAILY 03/28/25 03/28/25 cholecalciferol (vitamin D3) 25 25 mcg PO DAILY 03/28/25 03/28/25 mcg (1,000 unit) chewable tablet (VitaJoy Daily D) ferrous sulfate 325 mg (65 mg 325 mg PO DAILY 03/28/25 03/28/25 iron) tablet magnesium oxide 400 mg PO BID 03/28/25 03/28/25 metoprolol tartrate 100 mg tablet 100 mg PO Q12H 03/28/25 03/28/25 Allergies Allergy/AdvReac Type Severity Reaction Status Date / Time Penicillins Allergy Intermediate Rash Verified 03/28/25 19:08 Opioid HPI Opioid Management Most Recent Opioid Data: Last Pain Scale 3 03/29/25, 08:30 Last Pain Intensity 3 03/29/25, 08:30 Last Pain Assessment 03/29/25, 00:00 Last MAR Pain Assessment 03/29/25, 00:53 Last ORT Total Score 0 03/29/25, 00:33 Last ORT Risk Category Low Risk 03/29/25, 00:33 Review of Systems ROS Constitutional Denies: fever, chills or change in weight Eyes Denies: change in vision Ears, nose, mouth, and throat Denies: throat pain, neck pain, throat swelling or difficulty swallowing Cardiovascular Denies: chest pain, palpitations, edema or swelling of feet/ankles Respiratory Denies: shortness of breath Gastrointestinal Denies: abdominal pain, nausea or vomiting Genitourinary Denies: painful urination Musculoskeletal Reports: extremity pain and extremity swelling; Denies: back pain or neck pain Integumentary/Breast Reports: redness, skin tenderness, sores (bilateral calf) and changes in skin color (chronic lymphedema changes); Denies: rash or itching Neurological Denies: headache Psychiatric Denies: anxiety Hematologic/Lymphatic Denies: easy bruising PFSH PFSH Medical History (Updated 03/29/25 @ 07:58 by Adan Cardoza MD) HTN (hypertension) ?I10 - Essential (primary) hypertension (ICD-10) Surgical History (Updated 03/29/25 @ 00:44 by Regina White RN) Hx of cholecystectomy ?Z90.49 - Acquired absence of other specified parts of digestive tract (ICD-10) History of back surgery ?Z98.890 - Other specified postprocedural states (ICD-10) Family History (Updated 03/29/25 @ 00:45 by Regina White RN) Father Family history of CHF (congestive heart failure) Family history of hypertension Mother Family history of CHF (congestive heart failure) Family history of hypertension Brother Family history of diabetes mellitus Family history of hypertension Social History (Updated 03/29/25 @ 00:46 by Regina White, WIN) Within the past year, how often did you have a drink containing alcohol: never Score interpretation: A score less than 3 is consistent with normal alcohol consumption. Smoking status: Never smoker Non-prescribed substance use: denies use Previous occupational history: retired Highest level of school completed/degree received: Associate degree: academic program Are you now , , , , never or living with a partner: In a typical week, how many times do you talk on the telephone with family, friends, or neighbors: 3 or more times per week How often do you get together with friends or relatives: 3 or more times per week How often do you attend cheondoism or catholic services: never Little interest or pleasure in doing things: not at all Feeling down, depressed, or hopeless: not at all Feel stressed/tense/nervous/anxious/difficulty sleeping: not at all Do you think of yourself as: straight/heterosexual Gender Identity: female Exam Narrative Exam Narrative: Nurses notes and vital signs reviewed and patient is not hypoxic. General: The patient appears well and in no apparent distress. Patient is resting comfortably on cart. Patient unable to stand and readily walk. Fatigue Skin: Warm, dry, no pallor noted. Patient logrolled and there is no acute decubitus ulcer skin changes consistent with prior healing ulcer. The bilateral lower legs noted for lymphedematous changes in the dependent regions of the calf and lower leg are noted for near full ulceration of the epidermal layer but no myofascial tissue was exposed beefy red chronic appearing wound that is weeping without purulent drainage is noted. Patient has thickened Skin Consistent with lymphedema. Visible sore on the heels or feet. States she cannot reach her legs for skin care or wound care. Odor present from leg wounds. dimension of wound is that of which he lower leg skin toucheds the bed to the proximal calf. Head: Normocephalic, atraumatic Neck: Supple, trachea mid-line, no tenderness, no lymphadenopathy Eye: Pupils are equal, round and reactive to light, EOMI Ears, Nose, Mouth, and Throat: TM are clear, normal light reflex, oral mucosa is moist, no posterior oropharynx erythema or hypertrophy, uvula is mid-line Cardiovascular: Regular Rate and Rhythm Respiratory: Patient is in no distress, no accessory muscle use, lungs are clear to auscultation, no wheezing, rales or rhonchi. Chest Wall: no tenderness Back: non-tender, no CVA tenderness Musculoskeletal: Patient able to motor both lower legs but notes fatigue and weakness with repetitive motion. There is no joint warmth or erythema suspect remote prepatellar bursitis of the right knee that is nontender. GI: Normal bowel sounds, no tenderness to palpation, no masses appreciated. No rebound, guarding, or rigidity noted. Neurological: A&O x4 Psychiatric: Cooperative Constitutional Vital Signs, click to edit/add: Last Vital Signs Temp 97.7 F 03/30/25 04:21 Pulse 77 03/30/25 04:21 Resp 18 03/30/25 04:21 BP 106/62 03/30/25 04:21 Pulse Ox 92 L 03/30/25 04:21 O2 Del Method Room Air 03/30/25 04:21 Course Vital Signs Vital signs: Vital Signs Temperature 97.8 F 03/28/25 19:08 Pulse Rate 116 H 03/28/25 19:08 Respiratory Rate 16 03/28/25 19:08 Blood Pressure 122/77 03/28/25 19:08 Pulse Oximetry 97 03/28/25 19:08 Oxygen Delivery Method Room Air 03/28/25 19:08 Temperature 97.7 F 03/30/25 04:21 Pulse Rate 77 03/30/25 04:21 Respiratory Rate 18 03/30/25 04:21 Blood Pressure 106/62 03/30/25 04:21 Pulse Oximetry 92 L 03/30/25 04:21 Oxygen Delivery Method Room Air 03/30/25 04:21 Medical Decision Making MDM Narrative Medical decision making narrative: Patient presents with acute on chronic leg wounds worsening since discharge from home health as patient is unable to reach her legs and care for herself. She admits a family member has been checking on her to help with basic needs but she is concerned as her leg wounds are worsening and exam favors a very dependent position in both legs with location of erythematous skin. Labs obtained patient be given vancomycin as a precaution given extensive skin involvement. Plain film x-rays performed of the bilateral tib-fib's to rule out any appearance of gas there is no streaking lymphangitis into the groin or proximal thigh. Old stool Present in her depends. Blood cult and wound cults present. Patient was a difficult IV stick and required multiple nurses to attend to her basic hygiene. IV was eventually established and I personally spoke with on-call hospitalist Sandra regarding need for inpatient admission and likely protective services social worker consult. Patient is unable to care for herself she is unable to reach her own legs and wounds previously healed with home health nurse have now returned with bilateral stage III ulcer presentation. Wound cultures of both wounds and blood are pending and vancomycin was given. Labs are pending for admission and Sandra is agreeable to inpatient admission Lab Data Labs: Lab Results 03/28/25 03/28/25 Range/Units 21:00 21:23 WBC 18.5 H (4.0-11.0) 10^3/uL RBC 3.13 L (4.20-5.40) 10^6/uL Hgb 8.5 L (12.0-16.0) g/dL Hct 27.4 L (36.0-48.0) % MCV 87.5 (81.0-99.0) fL MCH 27.2 (26.7-34.0) pg MCHC 31.0 (29.9-35.2) g/dL RDW 16.3 H (11.0-15.0) % Plt Count 433 (150-450) 10^3/uL MPV 10.2 (9.5-13.5) fL Seg Neuts % (Manual) 90.0 H (43.0-75.0) Lymphocytes % (Manual) 5.0 L (20.5-60.0) % Monocytes % (Manual) 3.0 (1.7-12.0) % Eosinophils % (Manual) 1.0 (0.9-7.0) % Basophils % (Manual) 1.0 (0.2-2.0) % Neutrophils # (Manual) 16.65 H (1.4-6.5) 10^3/uL Lymphocytes # (Manual) 0.92 L (1.20-3.80) 10^3/uL Monocytes # (Manual) 0.55 (0.30-0.80) 10^3/uL Eosinophils # (Manual) 0.18 (0.00-0.70) 10^3/uL Basophils # (Manual) 0.18 H (0.00-0.10) 10^3/uL Hypochromasia 1+ ESR >130 H (<=30) mm/hr Sodium 141 (136-145) mmol/L Potassium 5.3 H (3.5-5.1) mmol/L Chloride 106 (98-107) mmol/L Carbon Dioxide 19.4 L (21.0-32.0) mmol/L Anion Gap 20.9 BUN 81.0 H* (7.0-18.0) mg/dL Creatinine 1.80 H (0.55-1.02) mg/dL Est GFR ( Amer) 34 L (>=60 mL/min/1.73m^2) Est GFR (Non-Af Amer) 28 L (>=60 mL/min/1.73m^2) BUN/Creatinine Ratio 45.0 Glucose 163 H (74-106) mg/dL Lactate 1.7 (0.4-2.0) mmol/L Calcium 9.0 (8.5-10.1) mg/dL Total Bilirubin 0.3 (0.2-1.0) mg/dL AST 45 H (15-37) U/L ALT 46 (14-59) U/L Alkaline Phosphatase 206 H (46-116) U/L Troponin I High Sens 5.8 (4.0-51.3) pg/mL C-Reactive Protein 8.13 H (<=0.50) mg/dL NT-Pro-B Natriuret Pep 440.0 (<=900.0) pg/mL Total Protein 6.3 L (6.4-8.2) g/dL Albumin 1.7 L (3.4-5.0) g/dL Globulin 4.6 g/dL Albumin/Globulin Ratio 0.4 TSH & Free T4 Interp 1.490 (0.358-3.740) uIU/mL Urine Color Lt. yellow (YELLOW) Urine Clarity Clear (CLEAR) Urine pH 5.5 (5.0-9.0) Ur Specific [place] 1.015 (1.005-1.025) Urine Protein Trace (NEG/TRACE) mg/dL Urine Glucose (UA) Negative (NEGATIVE) mg/dL Urine Ketones Negative (NEGATIVE) mg/dL Urine Occult Blood Small A (NEGATIVE) Urine Nitrite Positive A (NEGATIVE) Urine Bilirubin Negative (NEGATIVE) Urine Urobilinogen 0.2 (0.2-1.0) EU/dL Ur Leukocyte Esterase Large A (NEGATIVE) Urine RBC 0-2 (0-2) #/HPF Urine WBC 10-20 A (NONE SEEN) #/HPF Ur Squamous Epith Cells Rare (NONE/RARE) #/LPF Urine Crystals Seen A (None Seen) #/HPF Amorphous Sediment Rare Urine Bacteria Moderate A (NONE SEEN) #/HPF Urine Casts None seen (NONE SEEN) #/LPF Urine Mucus None seen (NONE SEEN) Ur [place] [place] Dis[place] Chief Complaint: Skin/Abscess/Foreign Body Clinical Impression: Decubitus ulcer of left leg, stage 3, Decubitus ulcer of right leg, stage 3, Adult failure to thrive, Acute dehydration, Acute UTI Patient Disposition: Admitted As Inpatient Discharge Date/Time: 03/28/25 23:31 Documented by User: Pacheco Graham MD 03/30/25 06:46 HPI HPI - General Adult General Chief complaint: Skin/Abscess/Foreign Body Stated complaint: Lower Pain Time Seen by Provider: 03/28/25 19:18 Related Data Home Medications ?Medication ?Instructions ?Recorded ?Confirmed aspirin 81 mg capsule 81 mg PO DAILY 03/28/25 03/28/25 cholecalciferol (vitamin D3) 25 25 mcg PO DAILY 03/28/25 03/28/25 mcg (1,000 unit) chewable tablet (VitaJoy Daily D) ferrous sulfate 325 mg (65 mg 325 mg PO DAILY 03/28/25 03/28/25 iron) tablet magnesium oxide 400 mg PO BID 03/28/25 03/28/25 metoprolol tartrate 100 mg tablet 100 mg PO Q12H 03/28/25 03/28/25 Allergies Allergy/AdvReac Type Severity Reaction Status Date / Time Penicillins Allergy Intermediate Rash Verified 03/28/25 19:08 Opioid HPI Opioid Management Most Recent Opioid Data: Last Pain Scale 3 03/29/25, 08:30 Last Pain Intensity 3 03/29/25, 08:30 Last Pain Assessment 03/29/25, 00:00 Last MAR Pain Assessment 03/29/25, 00:53 Last ORT Total Score 0 03/29/25, 00:33 Last ORT Risk Category Low Risk 03/29/25, 00:33 PFSH PFSH Medical History (Updated 03/29/25 @ 07:58 by Adan Cardoza MD) HTN (hypertension) ?I10 - Essential (primary) hypertension (ICD-10) Surgical History (Updated 03/29/25 @ 00:44 by Regina White, WIN) Hx of cholecystectomy ?Z90.49 - Acquired absence of other specified parts of digestive tract (ICD-10) History of back surgery ?Z98.890 - Other specified postprocedural states (ICD-10) Family History (Updated 03/29/25 @ 00:45 by Regina White, WIN) Father Family history of CHF (congestive heart failure) Family history of hypertension Mother Family history of CHF (congestive heart failure) Family history of hypertension Brother Family history of diabetes mellitus Family history of hypertension Social History (Updated 03/29/25 @ 00:46 by Regina White, WIN) Within the past year, how often did you have a drink containing alcohol: never Score interpretation: A score less than 3 is consistent with normal alcohol consumption. Smoking status: Never smoker Non-prescribed substance use: denies use Previous occupational history: retired Highest level of school completed/degree received: Associate degree: academic program Are you now , , , , never or living with a partner: In a typical week, how many times do you talk on the telephone with family, friends, or neighbors: 3 or more times per week How often do you get together with friends or relatives: 3 or more times per week How often do you attend cheondoism or catholic services: never Little interest or pleasure in doing things: not at all Feeling down, depressed, or hopeless: not at all Feel stressed/tense/nervous/anxious/difficulty sleeping: not at all Do you think of yourself as: straight/heterosexual Gender Identity: female Exam Constitutional Vital Signs, click to edit/add: Last Vital Signs Temp 97.7 F 03/30/25 04:21 Pulse 77 03/30/25 04:21 Resp 18 03/30/25 04:21 BP 106/62 03/30/25 04:21 Pulse Ox 92 L 03/30/25 04:21 O2 Del Method Room Air 03/30/25 04:21 Course Vital Signs Vital signs: Vital Signs Temperature 97.8 F 03/28/25 19:08 Pulse Rate 116 H 03/28/25 19:08 Respiratory Rate 16 03/28/25 19:08 Blood Pressure 122/77 03/28/25 19:08 Pulse Oximetry 97 03/28/25 19:08 Oxygen Delivery Method Room Air 03/28/25 19:08 Temperature 97.7 F 03/30/25 04:21 Pulse Rate 77 03/30/25 04:21 Respiratory Rate 18 03/30/25 04:21 Blood Pressure 106/62 03/30/25 04:21 Pulse Oximetry 92 L 03/30/25 04:21 Oxygen Delivery Method Room Air 03/30/25 04:21 Medical Decision Making MDM Narrative Medical decision making narrative: Patient presents with acute on chronic leg wounds worsening since discharge from home health as patient is unable to reach her legs and care for herself. She admits a family member has been checking on her to help with basic needs but she is concerned as her leg wounds are worsening and exam favors a very dependent position in both legs with location of erythematous skin. Labs obtained patient be given vancomycin as a precaution given extensive skin involvement. Plain film x-rays performed of the bilateral tib-fib's to rule out any appearance of gas there is no streaking lymphangitis into the groin or proximal thigh. Old stool Present in her depends. Blood cult and wound cults present. Patient was a difficult IV stick and required multiple nurses to attend to her basic hygiene. IV was eventually established and I personally spoke with on-call hospitalist Sandra regarding need for inpatient admission and likely protective services social worker consult. Patient is unable to care for herself she is unable to reach her own legs and wounds previously healed with home health nurse have now returned with bilateral stage III ulcer presentation. Wound cultures of both wounds and blood are pending and vancomycin was given. Labs are pending for admission and Sandra is agreeable to inpatient admission labs returned and discussed with the hospitalist. labs with evidence of dehydration, anemia and UTI Rocephin and fluids ordered Lab Data Labs: Lab Results 03/28/25 03/28/25 Range/Units 21:00 21:23 WBC 18.5 H (4.0-11.0) 10^3/uL RBC 3.13 L (4.20-5.40) 10^6/uL Hgb 8.5 L (12.0-16.0) g/dL Hct 27.4 L (36.0-48.0) % MCV 87.5 (81.0-99.0) fL MCH 27.2 (26.7-34.0) pg MCHC 31.0 (29.9-35.2) g/dL RDW 16.3 H (11.0-15.0) % Plt Count 433 (150-450) 10^3/uL MPV 10.2 (9.5-13.5) fL Seg Neuts % (Manual) 90.0 H (43.0-75.0) Lymphocytes % (Manual) 5.0 L (20.5-60.0) % Monocytes % (Manual) 3.0 (1.7-12.0) % Eosinophils % (Manual) 1.0 (0.9-7.0) % Basophils % (Manual) 1.0 (0.2-2.0) % Neutrophils # (Manual) 16.65 H (1.4-6.5) 10^3/uL Lymphocytes # (Manual) 0.92 L (1.20-3.80) 10^3/uL Monocytes # (Manual) 0.55 (0.30-0.80) 10^3/uL Eosinophils # (Manual) 0.18 (0.00-0.70) 10^3/uL Basophils # (Manual) 0.18 H (0.00-0.10) 10^3/uL Hypochromasia 1+ ESR >130 H (<=30) mm/hr Sodium 141 (136-145) mmol/L Potassium 5.3 H (3.5-5.1) mmol/L Chloride 106 (98-107) mmol/L Carbon Dioxide 19.4 L (21.0-32.0) mmol/L Anion Gap 20.9 BUN 81.0 H* (7.0-18.0) mg/dL Creatinine 1.80 H (0.55-1.02) mg/dL Est GFR ( Amer) 34 L (>=60 mL/min/1.73m^2) Est GFR (Non-Af Amer) 28 L (>=60 mL/min/1.73m^2) BUN/Creatinine Ratio 45.0 Glucose 163 H (74-106) mg/dL Lactate 1.7 (0.4-2.0) mmol/L Calcium 9.0 (8.5-10.1) mg/dL Total Bilirubin 0.3 (0.2-1.0) mg/dL AST 45 H (15-37) U/L ALT 46 (14-59) U/L Alkaline Phosphatase 206 H (46-116) U/L Troponin I High Sens 5.8 (4.0-51.3) pg/mL C-Reactive Protein 8.13 H (<=0.50) mg/dL NT-Pro-B Natriuret Pep 440.0 (<=900.0) pg/mL Total Protein 6.3 L (6.4-8.2) g/dL Albumin 1.7 L (3.4-5.0) g/dL Globulin 4.6 g/dL Albumin/Globulin Ratio 0.4 TSH & Free T4 Interp 1.490 (0.358-3.740) uIU/mL Urine Color Lt. yellow (YELLOW) Urine Clarity Clear (CLEAR) Urine pH 5.5 (5.0-9.0) Ur Specific [place] 1.015 (1.005-1.025) Urine Protein Trace (NEG/TRACE) mg/dL Urine Glucose (UA) Negative (NEGATIVE) mg/dL Urine Ketones Negative (NEGATIVE) mg/dL Urine Occult Blood Small A (NEGATIVE) Urine Nitrite Positive A (NEGATIVE) Urine Bilirubin Negative (NEGATIVE) Urine Urobilinogen 0.2 (0.2-1.0) EU/dL Ur Leukocyte Esterase Large A (NEGATIVE) Urine RBC 0-2 (0-2) #/HPF Urine WBC 10-20 A (NONE SEEN) #/HPF Ur Squamous Epith Cells Rare (NONE/RARE) #/LPF Urine Crystals Seen A (None Seen) #/HPF Amorphous Sediment Rare Urine Bacteria Moderate A (NONE SEEN) #/HPF Urine Casts None seen (NONE SEEN) #/LPF Urine Mucus None seen (NONE SEEN) Ur Culture [place]? [place] [place] Discharge Chief Complaint: Skin/Abscess/Foreign Body Clinical Impression: Decubitus ulcer of left leg, stage 3, Decubitus ulcer of right leg, stage 3, Adult failure to thrive, Acute dehydration, Acute UTI Patient Disposition: Admitted As Inpatient Discharge Date/Time: 03/28/25 23:31
[2025-03-28 21:30] LABS: Hematocrit 27.4 % (36.0-48.0); Hemoglobin 8.5 g/dL (12.0-16.0); Mean Corpuscular Hemoglobin 27.2 pg (26.7-34.0); Mean Corpuscular Volume 87.5 fL (81.0-99.0); Mean Platelet Volume 10.2 fL (9.5-13.5); Platelet Count 433 10^3/uL (150-450); Red Blood Count 3.13 10^6/uL (4.20-5.40); Red Cell Distribution Width 16.3 % (11.0-15.0); White Blood Count 18.5 10^3/uL (4.0-11.0)
[2025-03-28 21:35] LABS: Bilirubin Urine NEGATIVE (NEGATIVE); Blood Urine SMALL (NEGATIVE); Clarity Urine CLEAR (CLEAR); Color Urine LT. YELLOW (YELLOW); Glucose Urine UA NEGATIVE (NEGATIVE); Ketones Urine NEGATIVE (NEGATIVE); Leukocyte Esterase Urine LARGE (NEGATIVE); Nitrite Urine POSITIVE (NEGATIVE); Protein Urine TRACE mg/dL (NEG/TRACE); Specific Gravity Urine 1.015 (1.005-1.025); Urobilinogen Urine 0.2 EU/dL (0.2-1.0); pH Urine 5.5 (5.0-9.0)
[2025-03-28 21:41] LABS: RBC Urine 0-2 #/HPF (0-2)
[2025-03-28 21:42] LABS: Amorphous Sediment Urine RARE; Bacteria Urine MODERATE #/HPF (NONE SEEN); Cast Seen? NONE SEEN #/LPF (NONE SEEN); Crystals Seen? Seen #/HPF (None Seen); Mucus Urine NONE SEEN (NONE SEEN); Squamous Epithelial Cell Urine RARE #/LPF (NONE/RARE); Urine Culture Indicated YES-FRMC
[2025-03-28 21:45] LABS: Erythrocyte Sedimentation Rate >130 mm/hr (<=30)
[2025-03-28 21:51] LABS: Lactate/Lactic Acid 1.7 mmol/L (0.4-2.0)
[2025-03-28] MEDS: VANCOMYCIN HCL 2,000 MG in 0.9 % SODIUM CHLORIDE 500 ML 250 MG IV (21:51)
[2025-03-28] MEDS: ADACEL DIPH,PERTUSS(ACELL),TET VAC/PF 0.5 ML ADULT SYRINGE IM (21:51)
[2025-03-28 21:54] LABS: Basophils Abs Manual 0.18 10^3/uL (0.00-0.10); Eosinophils Absolute Manual 0.18 10^3/uL (0.00-0.70); Hypochromasia 1+; Lymphocytes Absolute Manual 0.92 10^3/uL (1.20-3.80); Monocytes Absolute Manual 0.55 10^3/uL (0.30-0.80); Segmented Neut Absolute Manual 16.65 10^3/uL (1.4-6.5)
[2025-03-28 21:58] LABS: Alanine Aminotransferase 46 U/L (14-59); Albumin Globulin Ratio 0.4; Albumin Level 1.7 g/dL (3.4-5.0); Alkaline Phosphatase 206 U/L (46-116); Anion Gap 20.9; Aspartate Amino Transferase 45 U/L (15-37); Bilirubin Total 0.3 mg/dL (0.2-1.0); C Reactive Protein 8.13 mg/dL (<=0.50); Carbon Dioxide 19.4 mmol/L (21.0-32.0); Chloride 106 mmol/L (98-107); Estimated GFR (African America 34 (>=60 mL/min/1.73m^2); Estimated GFR (Non-African Ame 28 (>=60 mL/min/1.73m^2); Globulin 4.6 g/dL; Glucose 163 mg/dL (74-106); Potassium 5.3 mmol/L (3.5-5.1); Sodium 141 mmol/L (136-145); Total Protein 6.3 g/dL (6.4-8.2); Troponin I High Sensitivity 5.8 pg/mL (4.0-51.3)
--- NOTE | 2025-03-28 22:32 | PC.NURSE ---
wounds to BLEs that patient has been dealing with for some time. She has seen wound care in the past and has had home health care nurses, but her home care has been discontinued. She states that her wounds had been healing, but once her home care stopped coming, the scabs started to come off and the wounds came back and her insurance would not approve the nurse to come back. Her niece is an [employer] and has been trying to treat the wounds at home, and they both say that they look better than they have been looking. The wraps that were on when the patient arrived were saturated, so they were removed immediately. THe skin sloughed off with the wraps revealing red, raw and bleeding tissue the length of each calf.
[2025-03-28 23:47] VITALS: BP 158/84; PULSE 98; TEMP 36.6; O2SAT 95; BMI 55.8
[2025-03-29] VITALS (14 sets, daily range): BP systolic 102–131; BP diastolic 60–85; PULSE 79–93; TEMP 36.3–36.7; O2SAT 91–97
[2025-03-29] MEDS: CEFTRIAXONE 1,000 MG in 0.9 % SODIUM CHLORIDE 50 ML 100 MG IV ×2 (00:52→23:04)
[2025-03-29] MEDS: ACETAMINOPHEN 500 MG TABLET 1000 MG PO ×2 (00:53→10:07)
[2025-03-29] MEDS: METOPROLOL TARTRATE 100 MG TABLET PO ×2 (00:53→21:25)
[2025-03-29] MEDS: 0.9 % SODIUM CHLORIDE 1,000 ML 125 ML IV (00:53)
--- NOTE | 2025-03-29 01:14 | PC.NURSE ---
Dressings to bilateral lower extremities removed to obtain pictures. Multiple malodorous bleeding and seeping wounds noted. Area flushed with saline and wounds dressing with non adhesive wet strips, telfa pads, 4x4 gauze and abd pads. Photos obtained and in chart. Patient tolerated well. Call light within reach and no further needs.
[2025-03-29 05:33] LABS: Basophils Percent Auto 0.3 % (0.2-2.0); Eosinophils Absolute Auto 0.3 10^3/uL (0.0-0.7); Eosinophils Percent Auto 2.1 % (0.9-7.0); Immature Granulocytes Pct Auto 2.7 % (0.0-0.5); Lymphocytes Absolute Auto 1.4 10^3/uL (1.2-3.8); Lymphocytes Percent Auto 9.1 % (20.5-60.0); Mean Corpuscular HGB Conc 30.9 g/dL (29.9-35.2); Mean Corpuscular Hemoglobin 26.7 pg (26.7-34.0); Mean Corpuscular Volume 86.3 fL (81.0-99.0); Mean Platelet Volume 10.3 fL (9.5-13.5); Monocytes Absolute Auto 0.6 10^3/uL (0.3-0.8); Monocytes Percent Auto 4.2 % (1.7-12.0); Neutrophils Absolute Auto 12.1 10^3/uL (1.4-6.5); Neutrophils Percent Auto 81.6 % (43.0-75.0); Platelet Count 356 10^3/uL (150-450); Red Blood Count 2.55 10^6/uL (4.20-5.40); White Blood Count 14.9 10^3/uL (4.0-11.0)
[2025-03-29 05:53] LABS: Alanine Aminotransferase 38 U/L (14-59); Albumin Globulin Ratio 0.4; Albumin Level 1.4 g/dL (3.4-5.0); Alkaline Phosphatase 143 U/L (46-116); Anion Gap 15.6; Aspartate Amino Transferase 39 U/L (15-37); BUN Creatinine Ratio 46.3; Bilirubin Total 0.2 mg/dL (0.2-1.0); Calcium 8.3 mg/dL (8.5-10.1); Carbon Dioxide 19.5 mmol/L (21.0-32.0); Chloride 112 mmol/L (98-107); Estimated GFR (African America 35 (>=60 mL/min/1.73m^2); Estimated GFR (Non-African Ame 29 (>=60 mL/min/1.73m^2); Globulin 3.5 g/dL; Glucose 109 mg/dL (74-106); Phosphorus 3.3 mg/dL (2.6-4.7); Potassium 5.1 mmol/L (3.5-5.1); Sodium 142 mmol/L (136-145); Total Protein 4.9 g/dL (6.4-8.2)
[2025-03-29 06:16] LABS: Hemoglobin 6.8 g/dL (12.0-16.0)
--- NOTE | 2025-03-29 07:36 | P.HP_ITS ---
HPI H&P: HPI History of Present Illness Chief complaint: ACUTE DEHYDRATION, ACUTE UTI Narrative: Patient has a history of bilateral lower extremity cellulitis with open wounds, had been doing well with home health and that was discontinued, over the last week she has had increasing erythema pain and now drainage from bilateral lower extremities, in ER patient found to have leukocytosis, tachycardia known source of infection lower extremities with resultant sepsis but not severe as lactate was negative When I saw patient up in the medical surgical floor, resting comfortably without complaint other than her lower extremities, some pain and pressure, Denies any black or tarry stools, did have an episode of severe diarrhea the day of admission but denies it being black Opioid HPI Opioid Management Most Recent Pain and Opioid Data: Last Pain Scale 8 07/15/23, 18:44 Last Pain Assessment Today, 00:00 Last MAR Pain Assessment Today, 00:53 Last ORT Total Score 0 Today, 00:33 Last ORT Risk Category Low Risk Today, 00:33 Review of Systems ROS Status of ROS 10 or more systems reviewed and unremark able except as noted in history and below PFSH PFSH Medical History (Updated 03/29/25 @ 07:58 by Adan Cardoza MD) HTN (hypertension) ?I10 - Essential (primary) hypertension (ICD-10) Surgical History (Updated 03/29/25 @ 00:44 by Regina White, WIN) Hx of cholecystectomy ?Z90.49 - Acquired absence of other specified parts of digestive tract (ICD- 10) History of back surgery ?Z98.890 - Other specified postprocedural states (ICD-10) Family History (Updated 03/29/25 @ 00:45 by Regina White, WIN) Father Family history of CHF (congestive heart failure) Family history of hypertension Mother Family history of CHF (congestive heart failure) Family history of hypertension Brother Family history of diabetes mellitus Family history of hypertension Social History (Updated 03/29/25 @ 00:46 by Regina White, WIN) Within the past year, how often did you have a drink containing alcohol: never Score interpretation: A score less than 3 is consistent with normal alcohol consumption. Smoking status: Never smoker Non-prescribed substance use: denies use Previous occupational history: retired Highest level of school completed/degree received: Associate degree: academic program Are you now , , , , never or living with a partner: In a typical week, how many times do you talk on the telephone with family, friends, or neighbors: 3 or more times per week How often do you get together with friends or relatives: 3 or more times per week How often do you attend gnosticism or bahai services: never Little interest or pleasure in doing things: not at all Feeling down, depressed, or hopeless: not at all Feel stressed/tense/nervous/anxious/difficulty sleeping: not at all Do you think of yourself as: straight/heterosexual Gender Identity: female Meds Home Medications and Allergies Home Medications ?Medication ?Instructions ?Recorded ?Confirmed ?Type aspirin 81 mg capsule 81 mg PO DAILY 03/28/2506/14 History cholecalciferol (vitamin D3) 25 25 mcg PO DAILY 03/28/25 History mcg (1,000 unit) chewable tablet (VitaJoy Daily D) ferrous sulfate 325 mg (65 mg 325 mg PO DAILY 03/28/25 03/28/25 History iron) tablet magnesium oxide 400 mg PO BID 03/28/2503/28 History metoprolol tartrate 100 mg tablet 100 mg PO Q12H 03/2803/28/25 History potassium 99 mg tablet mg 03/28/25 History Allergies Allergy/AdvReac Type Severity Reaction Status Date / Time Penicillins Allergy Intermediate Rash Verified 03/28/25 19:08 Exam Constitutional Vital Signs, click to edit/add: Last Vital Signs Temp 98 F 03/29/25 04:00 Pulse 79 03/29/25 04:00 Resp 18 03/29/25 04:00 BP 113/65 03/29/25 04:00 Pulse Ox 91 L 03/29/25 04:00 O2 Del Method Room Air 03/29/25 04:00 Documenting provider has reviewed patient's vital signs: yes Common normals: no apparent distress Chest Common normals: inspection of chest normal Respiratory Common normals: normal respiratory effort, no retractions, no use of accessory muscles and clear to auscultation bilaterally Cardio Common normals: regular rate, regular rhythm and no murmurs GI Common normals: soft to palpation, non-tender and no hepatosplenomegaly; negative for Normal to inspection, nondistended, normoactive bowel sounds present (Morbidly obese) Extremity Common normals: abnormal to inspection (Wraps in place, erythema just above the wrapping) Results Labs Labs: Short CBC 03/28/25 03/29/25 Range/Units 21:00 04:49 WBC 18.5 H 14.9 H (4.0-11.0) 10^3/uL Hgb 8.5 L 6.8 L* (12.0-16.0) g/dL Hct 27.4 L 22.0 L* (36.0-48.0) % Plt Count 433 356 (150-450) 10^3/uL BMP 03/28/25 03/29/25 21:00 04:49 Sodium 141 142 Potassium 5.3 H 5.1 Chloride 106 112 H Carbon Dioxide 19.4 L 19.5 L BUN 81.0 H* 82.0 H* Creatinine 1.80 H 1.77 H Glucose 163 H 109 H Calcium 9.0 8.3 L Liver Function 03/28/25 03/29/25 Range/Units 21:00 04:49 Total Bilirubin 0.3 0.2 (0.2-1.0) mg/dL AST 45 H 39 H (15-37) U/L ALT 46 38 (14-59) U/L Alkaline Phosphatase 206 H 143 H (46-116) U/L Albumin 1.7 L 1.4 L (3.4-5.0) g/dL Urine 03/28/25 Range/Units 21:23 Urine Color Lt. yellow (YELLOW) Urine Clarity Clear (CLEAR) Urine pH 5.5 (5.0-9.0) Ur Specific [place] 1.015 (1.005-1.025) Urine Protein Trace (NEG/TRACE) mg/dL Urine Glucose (UA) Negative (NEGATIVE) mg/dL Assessment and Plan Assessment and Plan (1) Acute UTI: (2) Decubitus ulcer of right leg, stage 3: (3) Decubitus ulcer of left leg, stage 3: (4) Decubitus ulcer of sacral region, stage 2: (5) Metabolic acidosis: (6) Hyperkalemia: (7) Sepsis: (8) HTN (hypertension): (9) Hypomagnesemia: (10) Elevated liver enzymes: (11) Chronic kidney disease, stage 3: (12) Acute blood loss anemia: (13) Severe protein-calorie malnutrition: Plan Admission findings: Sinus tachycardia, leukocytosis, known infectious source of lower extremities and urine consistent with sepsis but not severe lactate negative Sepsis with known sources of infection being urine and lower extremities Bilateral lower extremity cellulitis with open wounds, stage [id number] to wound, antibiotics, maintain vancomycin despite history of chronic kidney disease stage III just need to monitor closely Acute UTI-culture pending antibiotics as outlined above should improve, history of Proteus mirabilis and E. coli, but sensitive Severe protein calorie malnutrition-diet supplement Vitamin D deficiency-supplement Hypertension-improved and stable monitor Iron deficiency anemia with acute blood loss anemia-check stool for occult blood, type cross and transfuse 2 units Hyperkalemia-improved Metabolic acidosis with low CO2-slightly improved, monitor daily check venous blood gas later today Hyperglycemia on admission in the nonfasting state-improved to normal this morning Elevated liver function test-improved today, monitor likely related to sepsis as outlined above Hypomagnesemia-maintain supplementation Admission status: Patient has failed outpatient management of bilateral extremity cellulitis now with significantly open wounds, consult to wound management, culture pending, IV antibiotics, medically necessary treatment will span 2 midnights. Inpatient status Urinary Catheter Management Urinary Catheter Management Obed Roy: Cath placed during this visit: yes Urethral indwelling: No Insertion date: 03/28/25 Insertion time: 00:00
[2025-03-29] MEDS: MAGNESIUM OXIDE 400 MG TABLET PO ×2 (09:50→21:24)
[2025-03-29] MEDS: PANTOPRAZOLE SODIUM 40 MG VIAL IV (09:50)
[2025-03-29] MEDS: FERROUS SULFATE 325 MG TABLET PO (09:51)
[2025-03-29] MEDS: JUVEN PACKET 1 PACKET PO ×2 (09:51→21:26)
[2025-03-29] MEDS: CHOLECALCIFEROL (VITAMIN D3) 25 MCG/1,000 UNITS TABLET PO (09:51)
[2025-03-29] MEDS: PROSTAT 15 GM PROTEIN/100 CAL 30 ML LIQUID PACKET PO ×2 (09:51→21:25)
[2025-03-29] MEDS: 0.9 % SODIUM CHLORIDE 250 ML 10 ML IV (09:57)
--- NOTE | 2025-03-29 10:00 | SWNOTE1 ---
SW and I met with pt in room. SW discussed PT recommendation of going to SNF. Pt has previous SNF experience at [facility] in [place] and she did say she would not like to go back there. Pt is independent at home, she lives alone but she has a niece that comes to visit daily. Pt has a walker and cane but does not use them every day. Pt did have home health coming in but they ended in February. Pt does think it is [facility] out of [place]. SW to check. Pt has strongly voiced she does not want to make a decision about rehab today. SW let pt know the two facilities in [place] do take her insurance. SW let pt know SW will reach out to the Dr and pt may have to a plan a/plan b due to being a precert. SW to reach out to Dr and follow up with pt.
[2025-03-29] MEDS: DIPHENHYDRAMINE HCL 25 MG CAPSULE PO ×2 (10:07→21:25)
--- NOTE | 2025-03-29 10:07 | SWNOTE1 ---
Important Message from [employer] reviewed and discussed with patient. Pt. verbalized understanding and signed the form. Original given to patient and copy placed in patient?s chart.
[2025-03-29 10:59] LABS: Internal Control Within Normal Limits; Occult Blood Positive
--- NOTE | 2025-03-29 13:03 | W.PM.WC ---
Wound Consult Note Assessment and Plan (1) Acute UTI: (2) Decubitus ulcer of right leg, stage 3: (3) Decubitus ulcer of left leg, stage 3: (4) Decubitus ulcer of sacral region, stage 2: (5) Metabolic acidosis: (6) Hyperkalemia: (7) Sepsis: (8) Hypomagnesemia: (9) Elevated liver enzymes: (10) Chronic kidney disease, stage 3: (11) Acute blood loss anemia: (12) Severe protein-calorie malnutrition: Plan Consult for BLE ulcerations Patient seen today for skin assessment and chronic ulcerations to bilateral lower legs. Patient states her ulcerations are improving since last assessment by wound care at [facility]. Upon exam, her ulcerations are draining less, decreased in size, and no longer odorous. Her caregiver at her bedside today reports she assists patient with her care as well as home health care. Currently she is using adaptic and gauze. After removing dressings, she has open ulcerations to bilateral lower posterior legs that have skin islands and bridging noted. She states they are painful at times, with the left one causing her more discomfort than her right. Her overall BLE edema has improved as well as the condition of her overall skin. She does still have cobblestone appearance to her anterior lower legs with dry scaly skin. She does use lac-hydrin lotion at home and her and her caregiver report an improvement in the overall condition of her skin. Patient reports a small open ulceration on her buttocks as well that is being treated with barrier cream. States it is healing well as she can tell. Recommendations: Continue barrier cream to buttocks ulcerations daily and as needed. Xeroform gauze to bilateral posterior lower leg ulcerations. Cover with ABD pads and secure with kerlix. Wrap with sara bandage figure 8 from feet to just below knee. Elevate legs while sittings Lac-Hydrin lotion to intact dry skin BLE daily Photos per bedside nursing Please call [phone] with any questions or concerns. Troy Viveros RN, CWON Wound Assessment Wound Left Lower Posterior Leg: Wound Type: Stasis Ulcer (open ulceration due to lymphedema/swelling) Is This a Chronic Wound: Yes Length: 30 (Cluster of open ulcerations measured as one ) Width: 18 Depth: 0.1 Wound Bed Appearance: Beefy Red Percentage Granulated: 85 Percentage Slough: 15 Wound Margins Description: Well Defined Surrounding Tissue Appearance: Edematous (hemosiderin staining) Surrounding Tissue Temperature: warm Drainage Description: Serosanguineous Drainage Amount: Moderate Drainage Odor: No Odor Primary Dressing: xeroform gauze Secondary Dressing: Absorbant Pad (topped with ABD pad, kerlix and wrapped with sara bandage figure 8 up leg) Were photos of the wound(s) taken and uploaded to the chart?: Yes Dressing Change Patient Tolerance: Tolerated Well Right Lower Posterior Leg: Wound Type: Stasis Ulcer (open ulceration due to lymphedema) Is This a Chronic Wound: Yes Length: 32 (cluster of open ulcerations measured as one) Width: 20 Depth: 0.1 Wound Bed Appearance: Beefy Red Percentage Granulated: 85 Percentage Slough: 15 Wound Margins Description: Well Defined Surrounding Tissue Appearance: Edematous (hemosiderin staining) Surrounding Tissue Temperature: warm Drainage Description: Serosanguineous Drainage Amount: Moderate Drainage Odor: No Odor Primary Dressing: xeroform gauze Secondary Dressing: Absorbant Pad (topped with ABD pad, secured with kerlix and sara bandage wrapped figure 8 up leg) Were photos of the wound(s) taken and uploaded to the chart?: Yes Dressing Change Patient Tolerance: Tolerated Well
--- NOTE | 2025-03-29 13:11 | SWNOTE1 ---
ISAAC and I met with pt in room and pt's niece was at bedside. SW did let pt know Dr. Cardoza strongly recommends pt go to rehab as a plan B. Pt is agreeable to this and would like the [facility]. Referral sent to the [facility].
[2025-03-29] MEDS: FUROSEMIDE 40 MG/4 ML VIAL IVP (13:16)
--- NOTE | 2025-03-29 14:13 | SWNOTE1 ---
Xochitl from the [facility] called SW and let us know they can take the pt. They will start the precert today. Called [facility] to confirm if pt had services in the past, and they had no record of her.
--- NOTE | 2025-03-29 14:19 | SWNOTE1 ---
SW stopped in to room, pt was sleeping. SW called and left message for niece to see if they had a different phone number for [facility] home health, waiting to hear back.
[2025-03-29 17:47] LABS: Mean Corpuscular HGB Conc 32.1 g/dL (29.9-35.2); Mean Corpuscular Hemoglobin 27.6 pg (26.7-34.0); Mean Corpuscular Volume 85.9 fL (81.0-99.0); Mean Platelet Volume 9.9 fL (9.5-13.5); Platelet Count 391 10^3/uL (150-450); Red Blood Count 3.26 10^6/uL (4.20-5.40); Red Cell Distribution Width 15.9 % (11.0-15.0); White Blood Count 27.6 10^3/uL (4.0-11.0)
[2025-03-29 17:49] LABS: pH VBG 7.383 (7.330-7.430)
[2025-03-29 17:50] LABS: PCO2 VBG 29.5 mmHg (40.0-52.0)
[2025-03-29] MEDS: 0.9 % SODIUM CHLORIDE 1,000 ML 75 ML IV (17:51)
[2025-03-29 18:21] LABS: Band Neutrophils Absolute 1.1 10^3/uL (0.0-0.3); Eosinophils Absolute Manual 0.55 10^3/uL (0.00-0.70); Lymphocytes Absolute Manual 0.55 10^3/uL (1.20-3.80); Monocytes Absolute Manual 0.55 10^3/uL (0.30-0.80); Segmented Neut Absolute Manual 24.84 10^3/uL (1.4-6.5)
[2025-03-29] MEDS: VANCOMYCIN HCL 1,250 MG in 0.9 % SODIUM CHLORIDE 250 ML 166.667 MG IV (21:27)
[2025-03-30] VITALS (9 sets, daily range): BP systolic 106–133; BP diastolic 62–74; PULSE 67–90; TEMP 36.3–36.8; O2SAT 91–95
[2025-03-30] MEDS: DIPHENHYDRAMINE HCL 25 MG CAPSULE PO ×3 (02:42→18:55)
[2025-03-30 05:46] LABS: Basophils Absolute Auto 0.1 10^3/uL (0.0-0.1); Basophils Percent Auto 0.3 % (0.2-2.0); Eosinophils Absolute Auto 1.1 10^3/uL (0.0-0.7); Eosinophils Percent Auto 3.2 % (0.9-7.0); Hemoglobin 9.4 g/dL (12.0-16.0); Immature Granulocytes Abs Auto 1.09 10^3/uL (0.00-0.03); Immature Granulocytes Pct Auto 3.3 % (0.0-0.5); Lymphocytes Absolute Auto 1.1 10^3/uL (1.2-3.8); Lymphocytes Percent Auto 3.4 % (20.5-60.0); Mean Corpuscular HGB Conc 32.4 g/dL (29.9-35.2); Mean Corpuscular Hemoglobin 27.7 pg (26.7-34.0); Mean Corpuscular Volume 85.5 fL (81.0-99.0); Mean Platelet Volume 10.2 fL (9.5-13.5); Monocytes Absolute Auto 0.9 10^3/uL (0.3-0.8); Monocytes Percent Auto 2.6 % (1.7-12.0); Neutrophils Percent Auto 87.2 % (43.0-75.0); Platelet Count 411 10^3/uL (150-450); Red Blood Count 3.39 10^6/uL (4.20-5.40); Red Cell Distribution Width 16.5 % (11.0-15.0)
[2025-03-30 05:59] LABS: Alanine Aminotransferase 31 U/L (14-59); Albumin Globulin Ratio 0.4; Albumin Level 1.4 g/dL (3.4-5.0); Alkaline Phosphatase 120 U/L (46-116); Anion Gap 16.2; Aspartate Amino Transferase 26 U/L (15-37); BUN Creatinine Ratio 43.8; Bilirubin Total 0.3 mg/dL (0.2-1.0); Calcium 8.4 mg/dL (8.5-10.1); Carbon Dioxide 20.6 mmol/L (21.0-32.0); Chloride 109 mmol/L (98-107); Estimated GFR (African America 30 (>=60 mL/min/1.73m^2); Estimated GFR (Non-African Ame 24 (>=60 mL/min/1.73m^2); Globulin 3.6 g/dL; Glucose 102 mg/dL (74-106); Potassium 4.8 mmol/L (3.5-5.1); Sodium 141 mmol/L (136-145)
[2025-03-30 06:16] LABS: White Blood Count 33.2 10^3/uL (4.0-11.0)
--- NOTE | 2025-03-30 06:44 | P.PN_ITS ---
Progress Note: Subjective Subjective Interval history: Patient without specific complaint other than she is itching this morning, no hives noted, patient still feels weak Exam Constitutional Vital Signs, click to edit/add: Last Vital Signs Temp 97.7 F 03/30/25 04:21 Pulse 77 03/30/25 04:21 Resp 18 03/30/25 04:21 BP 106/62 03/30/25 04:21 Pulse Ox 92 L 03/30/25 04:21 O2 Del Method Room Air 03/30/25 04:21 Documenting provider has reviewed patient's vital signs: yes Common normals: apparent distress (Itching) Chest Common normals: inspection of chest normal Respiratory Common normals: normal respiratory effort and clear to auscultation bilaterally Cardio Common normals: regular rate, regular rhythm, S1 normal heart sound and S2 normal heart sound GI Common normals: soft to palpation, non-tender and no hepatosplenomegaly; negative for Normal to inspection, nondistended, normoactive bowel sounds present (Morbidly obese) Extremity Common normals: abnormal to inspection (Wraps in place, reviewing pics) Progress Note: Objective Labs Labs: Short CBC 03/29/25 03/30/25 Range/Units 17:38 04:51 WBC 27.6 H 33.2 H* (4.0-11.0) 10^3/uL Hgb 9.0 L 9.4 L (12.0-16.0) g/dL Hct 28.0 L 29.0 L (36.0-48.0) % Plt Count 391 411 (150-450) 10^3/uL BMP 03/30/25 04:51 Sodium 141 Potassium 4.8 Chloride 109 H Carbon Dioxide 20.6 L BUN 89.0 H* Creatinine 2.03 H Glucose 102 Calcium 8.4 L Liver Function 03/30/25 Range/Units 04:51 Total Bilirubin 0.3 (0.2-1.0) mg/dL AST 26 (15-37) U/L ALT 31 (14-59) U/L Alkaline Phosphatase 120 H (46-116) U/L Albumin 1.4 L (3.4-5.0) g/dL Progress Note: A&P Assessment and Plan (1) Acute UTI: (2) Decubitus ulcer of right leg, stage 3: (3) Decubitus ulcer of left leg, stage 3: (4) Decubitus ulcer of sacral region, stage 2: (5) Metabolic acidosis: (6) Hyperkalemia: (7) Sepsis: (8) Hypomagnesemia: (9) Elevated liver enzymes: (10) Chronic kidney disease, stage 3: (11) Acute blood loss anemia: (12) Severe protein-calorie malnutrition: Plan Admission findings: Sinus tachycardia, leukocytosis, known infectious source of lower extremities and urine consistent with sepsis but not severe lactate negative Sepsis with known sources of infection being urine and lower extremities-white blood cell count elevated further today, will change antibiotics especially in light of the pruritus although no hives noted Bilateral lower extremity cellulitis with open wounds, stage [id number] to wound, creatinine higher today, DC vancomycin changed to linezolid, and DC Rocephin changed to levofloxacin Acute UTI-culture pending antibiotics as outlined above should improve, history of Proteus mirabilis and E. coli, but sensitive Severe protein calorie malnutrition-diet supplement Pruritus-could be antibiotic related versus elevation in BUN-maintain Benadryl as needed Vitamin D deficiency-supplement Hypertension-improved and stable monitor Iron deficiency anemia with acute blood loss anemia-check stool for occult blood, type cross and transfuse 2 units Hyperkalemia-improved Metabolic acidosis with low CO2-slightly improved, monitor daily check venous blood gas later today Hyperglycemia on admission in the nonfasting state-improved to normal this morning Elevated liver function test-improved today, continue to monitor Hypomagnesemia-maintain supplementation Admission status: Patient has failed outpatient management of bilateral extremity cellulitis now with significantly open wounds, consult to wound management, culture pending, IV antibiotics, medically necessary treatment will span 2 midnights. Inpatient status Urinary Catheter Management Urinary Catheter Management Pure Wick: Cath placed during this visit: yes Urethral indwelling: No Insertion date: 03/30/25 Insertion time: 02:32
[2025-03-30] MEDS: LEVOFLOXACIN IN DEXTROSE 5 % 750 MG/150 ML PREMIX 100 MG IV (08:36)
[2025-03-30] MEDS: 0.9 % SODIUM CHLORIDE 1,000 ML 75 ML IV ×2 (08:36→20:56)
[2025-03-30] MEDS: JUVEN PACKET 1 PACKET PO ×2 (08:46→20:58)
[2025-03-30] MEDS: PROSTAT 15 GM PROTEIN/100 CAL 30 ML LIQUID PACKET PO ×2 (08:47→20:57)
[2025-03-30] MEDS: CHOLECALCIFEROL (VITAMIN D3) 25 MCG/1,000 UNITS TABLET PO (08:47)
[2025-03-30] MEDS: AMMONIUM LACTATE 226 GM BOTTLE 1 APPLIC TOPICAL (08:47)
[2025-03-30] MEDS: PANTOPRAZOLE SODIUM 40 MG VIAL IV (08:47)
[2025-03-30] MEDS: FERROUS SULFATE 325 MG TABLET PO (08:48)
[2025-03-30] MEDS: METOPROLOL TARTRATE 100 MG TABLET PO ×2 (08:48→20:58)
[2025-03-30] MEDS: MAGNESIUM OXIDE 400 MG TABLET PO ×2 (08:48→20:58)
[2025-03-30] MEDS: LINEZOLID IN DEXTROSE 5% 600 MG/300 ML PIGGYBACK 300 MG IV ×2 (10:07→21:03)
--- NOTE | 2025-03-30 10:08 | SWNOTE1 ---
Case management did get a call that pt is approved to go to the [facility]. ISAAC sent Xochitl from the [facility] an email checking to see if they got approval as well. Xochitl emailed ISAAC back and approval is good through the . ISAAC let Dr. Cardoza know.
--- NOTE | 2025-03-30 10:10 | SWNOTE1 ---
Dr. Cardoza responded to SW and pt is not medically stable for discharge today. ISAAC let Xochitl at the [facility] know.
[2025-03-30] MEDS: PROMETHAZINE HCL 25 MG TABLET PO (11:42)
--- NOTE | 2025-03-30 13:17 | PT.DAILY ---
Physical Therapy Daily Note PT Daily Note/Assess Start: 03/29/25 08:29 Freq: Status: Active Protocol: Document 03/30/25 13:00 MELCHOR (Rec: 03/30/25 13:17 MELCHOR [id number]) Visit Not Completed Visit Not Completed Visit Not Completed Other Due to: Other Reason Visit Patient declines this PM due to severe nausea. Patient Not Completed does voice that when feeling better she will participate and at this time feels like Rehab is going to be the better option. Physical Therapy Daily Note/Assessment Time In/Time Out Time In 13:00 Time Out 13:00 GG. Functional Abilities and Goals-Complete for Swing Bed Patients Only [id number]. Self-Care [id number]. Mobility
--- NOTE | 2025-03-30 13:20 | SWNOTE1 ---
SW and I met with pt in room to let pt know she was accepted for rehab at the [facility]. Pt voiced understanding. Pt also voiced that she is not feeling well today and she declined PT/OT.
--- NOTE | 2025-03-30 18:34 | OT.DAILY ---
Occupational Therapy Daily Note OT Inpatient Daily Visit Note Start: 03/29/25 10:11 Freq: Status: Active Protocol: Document 03/30/25 18:27 [id number] (Rec: 03/30/25 18:34 [id number]) OT Visit Details Time In/Time Out Time In 18:15 Time Out 18:27 OT Treatment Plan Subjective Subjective Pt awake and alert in room. Feeling nauseated, no vomiting. Pt agreeable to participate in self-care tasks at this time. AAOX4. Objective Objective With set up of supplies Pt completed oral hygiene sitting up in bed. Good sequencing and use of supplies, completed with accuracy. Agreeable to UB bathing with Min A reaching outside SHEKHAR and underarms, crossing midline. Pt reports she is feeling weak, limited motivation to continue. Assessment Assessment Pt is wanting to go to SNF to continue therapy. Pt left in bed, call light within reach. Continue OT POC. OT Baller Tender Timed Codes Self-Senior Care 12 Management minutes ( minutes) Self-Senior Care 1 Management units
[2025-03-31] VITALS (15 sets, daily range): BP systolic 89–136; BP diastolic 54–76; PULSE 65–85; TEMP 36.1–36.6; O2SAT 91–95
[2025-03-31] MEDS: DIPHENHYDRAMINE HCL 25 MG CAPSULE PO ×4 (00:07→23:00)
[2025-03-31 05:26] LABS: Basophils Absolute Auto 0.1 10^3/uL (0.0-0.1); Basophils Percent Auto 0.2 % (0.2-2.0); Eosinophils Absolute Auto 1.1 10^3/uL (0.0-0.7); Hemoglobin 7.1 g/dL (12.0-16.0); Immature Granulocytes Abs Auto 0.82 10^3/uL (0.00-0.03); Immature Granulocytes Pct Auto 2.9 % (0.0-0.5); Lymphocytes Absolute Auto 1.4 10^3/uL (1.2-3.8); Lymphocytes Percent Auto 4.9 % (20.5-60.0); Mean Corpuscular HGB Conc 31.7 g/dL (29.9-35.2); Mean Corpuscular Hemoglobin 27.5 pg (26.7-34.0); Mean Corpuscular Volume 86.8 fL (81.0-99.0); Monocytes Absolute Auto 1.2 10^3/uL (0.3-0.8); Monocytes Percent Auto 4.2 % (1.7-12.0); Neutrophils Absolute Auto 23.5 10^3/uL (1.4-6.5); Neutrophils Percent Auto 83.8 % (43.0-75.0); Platelet Count 384 10^3/uL (150-450); Red Blood Count 2.58 10^6/uL (4.20-5.40); Red Cell Distribution Width 16.6 % (11.0-15.0); White Blood Count 28.1 10^3/uL (4.0-11.0)
[2025-03-31 05:51] LABS: Alanine Aminotransferase 24 U/L (14-59); Albumin Globulin Ratio 0.4; Albumin Level 1.4 g/dL (3.4-5.0); Alkaline Phosphatase 89 U/L (46-116); Anion Gap 15.1; Aspartate Amino Transferase 16 U/L (15-37); BUN Creatinine Ratio 40.2; Bilirubin Total 0.3 mg/dL (0.2-1.0); Calcium 8.2 mg/dL (8.5-10.1); Chloride 111 mmol/L (98-107); Estimated GFR (African America 33 (>=60 mL/min/1.73m^2); Estimated GFR (Non-African Ame 27 (>=60 mL/min/1.73m^2); Globulin 3.2 g/dL; Glucose 85 mg/dL (74-106); Potassium 4.1 mmol/L (3.5-5.1); Sodium 141 mmol/L (136-145); Total Protein 4.6 g/dL (6.4-8.2)
[2025-03-31 06:10] LABS: Hematocrit 22.4 % (36.0-48.0)
--- NOTE | 2025-03-31 07:50 | P.PN_ITS ---
Progress Note: Subjective Subjective Interval history: Patient states she feels much better than previous day, looks better than previous day as well Exam Constitutional Vital Signs, click to edit/add: Last Vital Signs Temp 98 F 03/31/25 05:00 Pulse 80 03/31/25 05:00 Resp 18 03/31/25 05:00 BP 95/57 03/31/25 05:00 Pulse Ox 94 L 03/31/25 05:55 O2 Del Method Room Air 03/31/25 05:55 Documenting provider has reviewed patient's vital signs: yes Common normals: no apparent distress Chest Common normals: inspection of chest normal Respiratory Common normals: normal respiratory effort, no use of accessory muscles and clear to auscultation bilaterally Auscultation: no rales and no rhonchi Cardio Common normals: regular rate, regular rhythm and no murmurs GI Common normals: soft to palpation, non-tender (Patient denies epigastric tenderness) and no hepatosplenomegaly; negative for Normal to inspection, nondistended, normoactive bowel sounds present (Morbidly obese) Extremity Common normals: abnormal to inspection (Wraps in place, reviewing pics) Progress Note: Objective Labs Labs: Short CBC 03/31/25 Range/Units 04:59 WBC 28.1 H (4.0-11.0) 10^3/uL Hgb 7.1 L (12.0-16.0) g/dL Hct 22.4 L* (36.0-48.0) % Plt Count 384 (150-450) 10^3/uL BMP 03/31/25 04:59 Sodium 141 Potassium 4.1 Chloride 111 H Carbon Dioxide 19.0 L BUN 74.0 H Creatinine 1.84 H Glucose 85 Calcium 8.2 L Liver Function 03/31/25 Range/Units 04:59 Total Bilirubin 0.3 (0.2-1.0) mg/dL AST 16 (15-37) U/L ALT 24 (14-59) U/L Alkaline Phosphatase 89 (46-116) U/L Albumin 1.4 L (3.4-5.0) g/dL Progress Note: A&P Assessment and Plan (1) Acute UTI: (2) Decubitus ulcer of right leg, stage 3: (3) Decubitus ulcer of left leg, stage 3: (4) Decubitus ulcer of sacral region, stage 2: (5) Metabolic acidosis: (6) Hyperkalemia: (7) Sepsis: (8) Hypomagnesemia: (9) Elevated liver enzymes: (10) Chronic kidney disease, stage 3: (11) Acute blood loss anemia: (12) Severe protein-calorie malnutrition: Plan Admission findings: Sinus tachycardia, leukocytosis, known infectious source of lower extremities and urine consistent with sepsis but not severe lactate negative Sepsis with known sources of infection being urine and lower extremities- antibiotics adjusted on 03/30/2025, white blood cell count better today, no fevers, maintain current antibiotics check on cultures Bilateral lower extremity cellulitis with open wounds, stage [id number] to wound, maintain current antibiotics, culture pending Acute UTI-culture pending antibiotics white blood cell count improved maintain current antibiotics Acute upper gastrointestinal bleeding resulting in acute upper gastrointestinal blood loss anemia on top of chronic iron deficiency anemia-hemoglobin was stable, down 2 g today, will type cross and transfuse 2 units, may need EGD, no surgery available today, possible transfer, CBC at 1600, add Carafate Severe protein calorie malnutrition-diet supplement Pruritus-persisting for a will try 1 dose of steroids Vitamin D deficiency-supplement Hypertension-improved and stable monitor Hyperkalemia-resolved Metabolic acidosis with low CO2-monitoring Hyperglycemia on admission in the nonfasting state-improved to normal this morning Elevated liver function test-improved today, continue to monitor Hypomagnesemia-maintain supplementation Admission status: Patient has failed outpatient management of bilateral extremity cellulitis now with significantly open wounds, consult to wound management, culture pending, IV antibiotics, medically necessary treatment will span 2 midnights. Inpatient status Urinary Catheter Management Urinary Catheter Management Pure Wick: Cath placed during this visit: yes Urethral indwelling: No Insertion date: 03/30/25 Insertion time: 10:30
[2025-03-31] MEDS: LINEZOLID IN DEXTROSE 5% 600 MG/300 ML PIGGYBACK 300 MG IV ×2 (08:08→21:05)
[2025-03-31] MEDS: METOPROLOL TARTRATE 100 MG TABLET PO ×2 (08:19→20:55)
[2025-03-31] MEDS: PROSTAT 15 GM PROTEIN/100 CAL 30 ML LIQUID PACKET PO ×2 (08:19→20:55)
[2025-03-31] MEDS: FERROUS SULFATE 325 MG TABLET PO (08:19)
[2025-03-31] MEDS: CHOLECALCIFEROL (VITAMIN D3) 25 MCG/1,000 UNITS TABLET PO (08:19)
[2025-03-31] MEDS: JUVEN PACKET 1 PACKET PO ×2 (08:19→20:55)
[2025-03-31] MEDS: MAGNESIUM OXIDE 400 MG TABLET PO ×2 (08:19→20:55)
[2025-03-31] MEDS: AMMONIUM LACTATE 226 GM BOTTLE 1 APPLIC TOPICAL (08:20)
[2025-03-31] MEDS: PANTOPRAZOLE SODIUM 40 MG VIAL IV ×2 (08:29→20:55)
[2025-03-31] MEDS: SUCRALFATE 1 GM TABLET PO ×3 (08:29→20:55)
[2025-03-31] MEDS: ACETAMINOPHEN 325 MG TABLET 650 MG PO (09:27)
[2025-03-31] MEDS: 0.9 % SODIUM CHLORIDE 250 ML 10 ML IV (09:28)
[2025-03-31] MEDS: METHYLPREDNISOLONE SOD SUCC PF 125 MG/2 ML VIAL IVP (09:28)
--- NOTE | 2025-03-31 10:35 | PT.DAILY ---
Physical Therapy Daily Note PT Daily Note/Assess Start: 03/29/25 08:29 Freq: Status: Active Protocol: Document 03/31/25 10:34 PAM (Rec: 03/31/25 10:35 PAM [id number]) Physical Therapy Daily Note/Assessment Time In/Time Out Time In 10:23 Time Out 10:33 Pain In Pain N/A Pain Out Pain N/A Subjective Subjective Pt receiving blood. OK'd for bed level ex by WIN Rajput. Pt agreeable to bed level ex. Therapeutic Exercise Time Therapeutic Exercise 8 Minutes (minutes) Therapeutic Exercise 1 Units Therapeutic Exercise Treatment Therapeutic Exercise Pt instructed to complete bilat LE strengthening/ROM ex Treatment 10-15x ea. Remains supine upon completion with call light within reach and needs met. Total Physical Therapy Time Total Therapy 8 Minutes Total Physical 1 Therapy Units Summary Daily Note Summary Limited session due to blood transfusion. Tolerates supine ex well - limited ranges due to LE dressings.
[2025-03-31] MEDS: CALCIUM CARBONATE 500 MG (200MG ELEMENTAL) TAB CHEW PO ×3 (11:47→20:55)
--- NOTE | 2025-03-31 15:11 | SWNOTE1 ---
Updated labs, PT/OT, progress notes, and nursing notes faxed to [facility].
[2025-03-31 16:17] LABS: Hematocrit 29.1 % (36.0-48.0); Hemoglobin 9.4 g/dL (12.0-16.0); Mean Corpuscular HGB Conc 32.3 g/dL (29.9-35.2); Mean Corpuscular Hemoglobin 28.2 pg (26.7-34.0); Mean Corpuscular Volume 87.4 fL (81.0-99.0); Mean Platelet Volume 9.7 fL (9.5-13.5); Platelet Count 386 10^3/uL (150-450); Red Blood Count 3.33 10^6/uL (4.20-5.40); Red Cell Distribution Width 16.3 % (11.0-15.0); White Blood Count 27.5 10^3/uL (4.0-11.0)
[2025-03-31 16:49] LABS: Lymphocytes Absolute Manual 0.27 10^3/uL (1.20-3.80); Monocytes Absolute Manual 0.27 10^3/uL (0.30-0.80); Segmented Neut Absolute Manual 26.95 10^3/uL (1.4-6.5)
[2025-03-31 16:50] LABS: Anisocytosis 1+
[2025-04-01] VITALS (10 sets, daily range): BP systolic 128–149; BP diastolic 66–74; PULSE 67–74; TEMP 36.4–36.8; O2SAT 92–98
[2025-04-01] MEDS: SUCRALFATE 1 GM TABLET PO ×4 (05:17→20:48)
[2025-04-01 06:01] LABS: Basophils Absolute Auto 0.1 10^3/uL (0.0-0.1); Basophils Percent Auto 0.2 % (0.2-2.0); Hematocrit 25.8 % (36.0-48.0); Hemoglobin 8.3 g/dL (12.0-16.0); Immature Granulocytes Abs Auto 1.05 10^3/uL (0.00-0.03); Lymphocytes Absolute Auto 1.1 10^3/uL (1.2-3.8); Lymphocytes Percent Auto 4.2 % (20.5-60.0); Mean Corpuscular HGB Conc 32.2 g/dL (29.9-35.2); Mean Corpuscular Hemoglobin 28.1 pg (26.7-34.0); Mean Corpuscular Volume 87.5 fL (81.0-99.0); Mean Platelet Volume 10.2 fL (9.5-13.5); Monocytes Absolute Auto 0.5 10^3/uL (0.3-0.8); Monocytes Percent Auto 1.8 % (1.7-12.0); Neutrophils Absolute Auto 23.3 10^3/uL (1.4-6.5); Neutrophils Percent Auto 89.8 % (43.0-75.0); Platelet Count 397 10^3/uL (150-450); Red Blood Count 2.95 10^6/uL (4.20-5.40); Red Cell Distribution Width 16.5 % (11.0-15.0)
[2025-04-01 06:24] LABS: Alanine Aminotransferase 24 U/L (14-59); Albumin Globulin Ratio 0.5; Albumin Level 1.7 g/dL (3.4-5.0); Alkaline Phosphatase 104 U/L (46-116); Anion Gap 15.7; Aspartate Amino Transferase 15 U/L (15-37); Bilirubin Total 0.2 mg/dL (0.2-1.0); Calcium 8.6 mg/dL (8.5-10.1); Carbon Dioxide 18.8 mmol/L (21.0-32.0); Chloride 110 mmol/L (98-107); Estimated GFR (African America 33 (>=60 mL/min/1.73m^2); Estimated GFR (Non-African Ame 27 (>=60 mL/min/1.73m^2); Globulin 3.5 g/dL; Glucose 191 mg/dL (74-106); Potassium 4.5 mmol/L (3.5-5.1); Sodium 140 mmol/L (136-145); Total Protein 5.2 g/dL (6.4-8.2)
--- NOTE | 2025-04-01 06:54 | P.PN_ITS ---
Progress Note: Subjective Subjective Interval history: Looks better today, states abdominal discomfort is improved, last stool was green no longer black Exam Constitutional Vital Signs, click to edit/add: Last Vital Signs Temp 97.6 F 04/01/25 04:00 Pulse 69 04/01/25 04:00 Resp 20 04/01/25 04:00 BP 135/70 04/01/25 04:00 Pulse Ox 92 L 04/01/25 04:00 O2 Del Method Room Air 04/01/25 04:00 Documenting provider has reviewed patient's vital signs: yes Common normals: no apparent distress Respiratory Common normals: normal respiratory effort and no retractions Cardio Common normals: regular rate and regular rhythm GI Common normals: soft to palpation and non-tender; negative for Normal to inspection, nondistended, normoactive bowel sounds present (Morbidly obese) Extremity Common normals: full ROM, normal capillary refill, no joint enlargement, no clubbing, cyanosis or edema, no calf tenderness and no pedal edema; abnormal to inspection (Dressing placed, see pictures) Progress Note: Objective Labs Labs: Short CBC 03/31/25 04/01/25 Range/Units 16:09 05:20 WBC 27.5 H 26.0 H (4.0-11.0) 10^3/uL Hgb 9.4 L 8.3 L (12.0-16.0) g/dL Hct 29.1 L 25.8 L (36.0-48.0) % Plt Count 386 397 (150-450) 10^3/uL BMP 04/01/25 05:20 Sodium 140 Potassium 4.5 Chloride 110 H Carbon Dioxide 18.8 L BUN 68.0 H Creatinine 1.84 H Glucose 191 H Calcium 8.6 Liver Function 04/01/25 Range/Units 05:20 Total Bilirubin 0.2 (0.2-1.0) mg/dL AST 15 (15-37) U/L ALT 24 (14-59) U/L Alkaline Phosphatase 104 (46-116) U/L Albumin 1.7 L (3.4-5.0) g/dL Progress Note: A&P Assessment and Plan (1) Acute UTI: (2) Decubitus ulcer of right leg, stage 3: (3) Decubitus ulcer of left leg, stage 3: (4) Decubitus ulcer of sacral region, stage 2: (5) Metabolic acidosis: (6) Hyperkalemia: (7) Sepsis: (8) Hypomagnesemia: (9) Elevated liver enzymes: (10) Chronic kidney disease, stage 3: (11) Acute blood loss anemia: (12) Severe protein-calorie malnutrition: Plan Admission findings: Sinus tachycardia, leukocytosis, known infectious source of lower extremities and urine consistent with sepsis but not severe lactate negative Sepsis with known sources of infection being urine and lower extremities- antibiotics adjusted on 03/30/2025, white blood cell count better today, no fevers, maintain current antibiotics check on cultures again today Bilateral lower extremity cellulitis with open wounds, stage [id number] to wound, maintain current antibiotics, culture pending, will review pictures of dressing change Acute UTI-culture pending antibiotics white blood cell count improved maintain current antibiotics, checking cultures later today Acute upper gastrointestinal bleeding resulting in acute upper gastrointestinal blood loss anemia on top of chronic iron deficiency anemia-hemoglobin improved nicely yesterday afternoon, stools have changed more to green no longer black, but hemoglobin is down 1 g today from previous day, repeat CBC at noon, if repeat CBC at noon is stable to improved possible discharge to rehab today, if down may need 1 more unit of blood, so far with site of bleeding has stopped Severe protein calorie malnutrition-diet supplement Pruritus-persisting for a will try 1 dose of steroids Vitamin D deficiency-supplement Hypertension-improved and stable monitor Hyperkalemia-resolved Metabolic acidosis with low CO2-monitoring Hyperglycemia on admission in the nonfasting state-improved to normal this morning Elevated liver function test-improved today, continue to monitor Hypomagnesemia-maintain supplementation Admission status: Patient has failed outpatient management of bilateral extremity cellulitis now with significantly open wounds, consult to wound management, culture pending, IV antibiotics, medically necessary treatment will span 2 midnights. Inpatient status Urinary Catheter Management Urinary Catheter Management Pure Wick: Cath placed during this visit: yes Urethral indwelling: No Insertion date: 03/30/25 Insertion time: 10:30
[2025-04-01] MEDS: PROSTAT 15 GM PROTEIN/100 CAL 30 ML LIQUID PACKET PO ×2 (08:56→20:48)
[2025-04-01] MEDS: JUVEN PACKET 1 PACKET PO ×2 (08:56→20:48)
[2025-04-01] MEDS: PANTOPRAZOLE SODIUM 40 MG VIAL IV ×2 (08:56→20:48)
[2025-04-01] MEDS: DIPHENHYDRAMINE HCL 25 MG CAPSULE PO ×2 (08:57→17:18)
[2025-04-01] MEDS: METOPROLOL TARTRATE 100 MG TABLET PO ×2 (08:57→20:48)
[2025-04-01] MEDS: FERROUS SULFATE 325 MG TABLET PO (08:57)
[2025-04-01] MEDS: MAGNESIUM OXIDE 400 MG TABLET PO ×2 (08:57→20:48)
[2025-04-01] MEDS: CHOLECALCIFEROL (VITAMIN D3) 25 MCG/1,000 UNITS TABLET PO (08:57)
[2025-04-01] MEDS: CALCIUM CARBONATE 500 MG (200MG ELEMENTAL) TAB CHEW PO ×4 (08:57→21:01)
[2025-04-01] MEDS: AMMONIUM LACTATE 226 GM BOTTLE 1 APPLIC TOPICAL (08:58)
[2025-04-01] MEDS: LINEZOLID IN DEXTROSE 5% 600 MG/300 ML PIGGYBACK 300 MG IV ×2 (08:59→20:49)
--- NOTE | 2025-04-01 09:20 | SWNOTE1 ---
SW and I stopped by pt's room to discuss her discharge plan. Pt is aware of possible dc today and she has decided she is going to rehab at [facility]. Pt stressed again that it was going to be short term and SW did confirm this. Pt also said she would like home health after being dc from [facility]. ISAAC advised that Joanna is the SW at [facility] and she will assist with home health once pt is done with rehab.
--- NOTE | 2025-04-01 10:04 | SWNOTE1 ---
SW completed PASR online.
--- NOTE | 2025-04-01 10:08 | SWNOTE1 ---
SW and I stopped in to the let pt know the [facility] does not have transportation available today so her other option would be to go by [facility]. Pt was okay with this. SW will wait to hear from nurse if pt is ready to go today and then will call to set up [facility].
[2025-04-01] MEDS: LEVOFLOXACIN IN DEXTROSE 5 % 750 MG/150 ML PREMIX 100 MG IV (10:28)
[2025-04-01] MEDS: ACETAMINOPHEN 500 MG TABLET 1000 MG PO (11:23)
--- NOTE | 2025-04-01 11:23 | PT.DAILY ---
Physical Therapy Daily Note PT Daily Note/Assess Start: 03/29/25 08:29 Freq: Status: Active Protocol: Document 04/01/25 11:15 [id number] (Rec: 04/01/25 11:23 [id number]) Physical Therapy Daily Note/Assessment Time In/Time Out Time In 10:16 Time Out 10:28 Pain In Pain Level 1 Pain Out Pain Level 1 Subjective Subjective Patient received chair after completing OT treatment. Patient agreeable to participating with PT. States her legs are where the pain is. States she does get a bit light headed when she first stands up. Therapeutic Exercise Time Therapeutic Exercise 3 Minutes (minutes) Therapeutic Exercise 0 Units Therapeutic Exercise Treatment Therapeutic Exercise Patient performed seated ANDRZEJ LE @ 10 reps for Treatment strengthening to improve ambulation. Toe/heel raises, LAQ's, MRE hip ABD/ADD. Therapeutic Activity Time Therapeutic Activity 9 Minutes (minutes) Therapeutic Activity 1 Units Therapeutic Activity Treatment Chair Transfer Contact Guard Assist Ability Therapeutic Activity Sit to stand to 2WW is CGA +1. Patient uses arm rest Comments of chair to push up. Patient Stood ~45 seconds prior to walking 5 feet forward and backwards and returned to chair. Patient verbalizes fatigue. Patient perform sit to stand to 2WW with CGA +1 for second rep. Stood ~20 seconds prior to walking forward/backward 5 feet and returned to chair. Again verbalizes fatigue. CBWR and all needs met. Total Physical Therapy Time Total Therapy 12 Minutes Total Physical 1 Therapy Units Summary Daily Note Summary Patient verbalizes fatigue with exertion, but is demonstrating increased ambulation distance this date. Patient would benefit from SNF to address functional deficits for return to PLOF.
[2025-04-01 11:57] LABS: Hematocrit 28.9 % (36.0-48.0); Hemoglobin 9.3 g/dL (12.0-16.0); Mean Corpuscular HGB Conc 32.2 g/dL (29.9-35.2); Mean Corpuscular Hemoglobin 28.2 pg (26.7-34.0); Mean Corpuscular Volume 87.6 fL (81.0-99.0); Platelet Count 482 10^3/uL (150-450); Red Cell Distribution Width 17.3 % (11.0-15.0)
--- NOTE | 2025-04-01 12:02 | CM.NOTE ---
Dr. Cardoza notified of urine culture positive for Klebsiella. Sensitivity on chart.
[2025-04-01 12:10] LABS: White Blood Count 31.7 10^3/uL (4.0-11.0)
[2025-04-01 12:17] LABS: Anisocytosis 1+; Band Neutrophils Absolute 1.3 10^3/uL (0.0-0.3); Lymphocytes Absolute Manual 1.58 10^3/uL (1.20-3.80); Monocytes Absolute Manual 0.95 10^3/uL (0.30-0.80); Segmented Neut Absolute Manual 27.89 10^3/uL (1.4-6.5)
[2025-04-01] MEDS: CEFDINIR 300 MG CAPSULE PO (13:03)
--- NOTE | 2025-04-01 15:27 | SWNOTE1 ---
SW reached out to doctor and pt is not discharging today. SW updated the [facility]. Plan is for discharge tomorrow.
[2025-04-02] MEDS: SUCRALFATE 1 GM TABLET PO ×2 (03:05→08:40)
[2025-04-02] MEDS: DIPHENHYDRAMINE HCL 25 MG CAPSULE PO (03:08)
[2025-04-02 03:10] VITALS: BP 129/74; PULSE 60; TEMP 36.6; O2SAT 93
[2025-04-02 05:54] LABS: Hematocrit 27.5 % (36.0-48.0); Hemoglobin 8.6 g/dL (12.0-16.0); Mean Corpuscular HGB Conc 31.3 g/dL (29.9-35.2); Mean Corpuscular Hemoglobin 27.8 pg (26.7-34.0); Mean Platelet Volume 10.2 fL (9.5-13.5); Platelet Count 402 10^3/uL (150-450); Red Blood Count 3.09 10^6/uL (4.20-5.40); Red Cell Distribution Width 17.6 % (11.0-15.0); White Blood Count 18.1 10^3/uL (4.0-11.0)
[2025-04-02 06:07] LABS: Alanine Aminotransferase 28 U/L (14-59); Albumin Globulin Ratio 0.5; Albumin Level 1.7 g/dL (3.4-5.0); Alkaline Phosphatase 105 U/L (46-116); Anion Gap 14.5; Aspartate Amino Transferase 21 U/L (15-37); Bilirubin Total 0.2 mg/dL (0.2-1.0); Calcium 8.8 mg/dL (8.5-10.1); Carbon Dioxide 22.1 mmol/L (21.0-32.0); Chloride 110 mmol/L (98-107); Estimated GFR (African America 33 (>=60 mL/min/1.73m^2); Estimated GFR (Non-African Ame 27 (>=60 mL/min/1.73m^2); Globulin 3.5 g/dL; Glucose 103 mg/dL (74-106); Potassium 4.6 mmol/L (3.5-5.1); Sodium 142 mmol/L (136-145); Total Protein 5.2 g/dL (6.4-8.2)
[2025-04-02 06:15] LABS: Lymphocytes Absolute Manual 1.81 10^3/uL (1.20-3.80); Metamyelocytes Absolute Manual 0.18; Monocytes Absolute Manual 1.08 10^3/uL (0.30-0.80); Segmented Neut Absolute Manual 14.11 10^3/uL (1.4-6.5)
--- NOTE | 2025-04-02 06:51 | P.DS_ITS ---
DS: Providers Provider Date of admission: 03/28/25 23:31 Primary care physician: MUMTAZ COTA Consults: 03/28/25 22:32 Consult to Credit Control Clerk Routine Has provider been notified: No Reason for consult:: Nursing Home Consult to Wound Care Routine Consulting Provider: Troy Viveros Reason for consultation: multiple pressure ulcers Has provider been notified: No 03/29/25 Consult to Dietitian Routine Reason for consultation: poor appettie 03/29/25 07:36 Occupational Therapy Eval and Treat Routine Reason for consultation: Only if needed for Rehab Has provider been notified: No Physical Therapy Eval and Treat Routine Reason for consultation: Eval and Treat Has provider been notified: No DS: Diagnosis Discharge Diagnosis (1) Acute UTI: (2) Decubitus ulcer of right leg, stage 3: (3) Decubitus ulcer of left leg, stage 3: (4) Decubitus ulcer of sacral region, stage 2: (5) Metabolic acidosis: (6) Hyperkalemia: (7) Sepsis: (8) Hypomagnesemia: (9) Elevated liver enzymes: (10) Chronic kidney disease, stage 3: (11) Acute blood loss anemia: (12) Severe protein-calorie malnutrition: Plan Admission findings: Sinus tachycardia, leukocytosis, known infectious source of lower extremities and urine consistent with sepsis but not severe lactate negative Sepsis with known sources of infection being urine and lower extremities-blood cell count much improved today Bilateral lower extremity cellulitis with open wounds, secondary to Pseudomonas and MRSA final culture pending Acute UTI-secondary to Klebsiella-resistant to antibiotics, they were adjusted yesterday Acute upper gastrointestinal bleeding resulting in acute upper gastrointestinal blood loss anemia on top of chronic iron deficiency anemia-hemoglobin fairly stable Severe protein calorie malnutrition-diet supplement Pruritus-persisting for a will try 1 dose of steroids Vitamin D deficiency-supplement Hypertension-improved and stable monitor Hyperkalemia-resolved Metabolic acidosis with low CO2-monitoring Hyperglycemia on admission in the nonfasting state-improved to normal this morning Elevated liver function test-improved today, continue to monitor Hypomagnesemia-maintain supplementation Admission status: Patient has failed outpatient management of bilateral extremity cellulitis now with significantly open wounds, consult to wound management, culture pending, IV antibiotics, medically necessary treatment will span 2 midnights. Inpatient status DS: Summary Hospital Course Hospital Course: Patient seen and evaluated the emergency room with increasing weakness, found to have Sinus tachycardia, leukocytosis, known infectious source of lower extremities and urine consistent with sepsis but not severe lactate negative. Later in the day she had severe diarrhea with bloody black stools, hemoglobin did drop down significantly and she was typed crossed and transfused 2 units, white blood cell count was elevated at 1 point over 30,000, her antibiotics have been adjusted, initial antibiotic choice did not appear to be improving things today were adjusted mid stay, culture came back for the urine resistant to those antibiotics, changed to cefdinir for that yesterday, still waiting wound culture results for the MRSA and Pseudomonas. Her white blood cell count is much improved we will discharge patient with current antibiotic regiment and adjust as necessary as an outpatient once final culture results come back. Blood count down slightly today but stable from previous day, no more black stools, does have some diarrhea will do stool culture. Patient will be discharged to rehab. Medications see list. I will follow patient at rehab Time Spent with Patient Time attestation: Total time spent providing and/or coordinating discharge services: Exam Constitutional Vital Signs, click to edit/add: Last Vital Signs Temp 97.8 F 04/02/25 03:10 Pulse 60 04/02/25 03:10 Resp 16 04/02/25 03:10 BP 129/74 04/02/25 03:10 Pulse Ox 93 L 04/02/25 03:10 O2 Del Method Room Air 04/02/25 03:10 Documenting provider has reviewed patient's vital signs: yes Common normals: no apparent distress Respiratory Common normals: normal respiratory effort and no retractions Auscultation: no rales, no rhonchi and no wheezes Cardio Common normals: regular rate, regular rhythm and no murmurs GI Common normals: soft to palpation, non-tender and no hepatosplenomegaly; negative for Normal to inspection, nondistended, normoactive bowel sounds present (Morbidly obese) Extremity Common normals: full ROM, normal capillary refill, no joint enlargement, no clubbing, cyanosis or edema, no calf tenderness and no pedal edema; abnormal to inspection (Dressing placed, see pictures) DS: Data Data Completed and Pending Labs on day of discharge: Labs from last 24 hours 04/02/25 04/01/25 05:08 11:52 WBC 18.1 H 31.7 H* RBC 3.09 L 3.30 L Hgb 8.6 L 9.3 L Hct 27.5 L 28.9 L MCV 89.0 87.6 MCH 27.8 28.2 MCHC 31.3 32.2 RDW 17.6 H 17.3 H Plt Count 402 482 H MPV 10.2 10.0 Seg Neuts % (Manual) 78.0 H 88.0 H Band Neutrophils % 4.0 Lymphocytes % (Manual) 10.0 L 5.0 L Monocytes % (Manual) 6.0 3.0 Eosinophils % (Manual) 5.0 0.0 L Basophils % (Manual) 0.0 L 0.0 L Metamyelocytes % 1.0 Neutrophils # (Manual) 14.11 H 27.89 H Band Neutrophils # 1.3 H Lymphocytes # (Manual) 1.81 1.58 Monocytes # (Manual) 1.08 H 0.95 H Eosinophils # (Manual) 0.90 H 0.00 Basophils # (Manual) 0.00 0.00 Metamyelocytes # 0.18 Anisocytosis 1+ Sodium 142 Potassium 4.6 Chloride 110 H Carbon Dioxide 22.1 Anion Gap 14.5 BUN 70.0 H Creatinine 1.84 H Est GFR ( Amer) 33 L Est GFR (Non-Af Amer) 27 L BUN/Creatinine Ratio 38.0 Glucose 103 Calcium 8.8 Total Bilirubin 0.2 AST 21 ALT 28 Alkaline Phosphatase 105 Total Protein 5.2 L Albumin 1.7 L Globulin 3.5 Albumin/Globulin Ratio 0.5 Preliminary micro results at discharge 03/29/25 09:15 Salmonella/Shigella Screen - Preliminary Stool 03/28/25 20:03 Aerobic Culture - Preliminary Leg Right Pseudomonas aeruginosa Staphylococcus aureus 03/28/25 20:02 Aerobic Culture - Preliminary Leg Left Pseudomonas aeruginosa 03/28/25 21:00 Blood Culture Result 1 - Preliminary Blood - Left Antecubital NO GROWTH AT 36-48 HOURS. FINAL TO FOLLOW. 03/28/25 20:53 Blood Culture Result 2 - Preliminary Blood - Right Antecubital NO GROWTH AT 36-48 HOURS. FINAL TO FOLLOW. Discharge Plan Discharge Disposition: Xfer SNF Discharge Medications: New ammonium lactate 12 % Lotion 1 applic topical QD Qty: 400 11RF acetaminophen 500 mg Tablet 1,000 mg PO Q6H PRN (Reason: pain) Qty: 300 11RF Pro-Stat Sugar Free 15 gram- 100 kcal/30 mL Liquid In Packet 1 ea PO BID Qty: 2880 0RF Addison (with collagen) 7-7-1.5 gram Powder In Packet 1 packet PO BID Qty: 30 11RF cefdinir 300 mg capsule 600 mg PO DAILY Qty: 20 0RF diphenhydramine HCl [Banophen] 25 mg Capsule 25 mg PO Q4H PRN (Reason: Itching) Qty: 30 11RF hyoscyamine sulfate 0.125 mg Tablet, Sublingual 0.125 mg sublingual QID PRN (Reason: diarrhea) Qty: 60 0RF Ensure Active Protein-Muscle Liquid 1 ea PO BID Qty: 5688 0RF levofloxacin 750 mg tablet 750 mg PO DAILY 14 Days Qty: 14 0RF linezolid 600 mg tablet 600 mg PO BID 14 Days Qty: 28 0RF pantoprazole [Protonix] 40 mg tablet,delayed release (DR/EC) 40 mg PO BID Qty: 60 11RF sucralfate 1 gram Tablet 1 g PO Q6H Qty: 120 12RF Continued metoprolol tartrate 100 mg tablet 100 mg PO Q12H aspirin 81 mg capsule 81 mg PO DAILY ferrous sulfate 325 mg (65 mg iron) tablet 325 mg PO DAILY cholecalciferol (vitamin D3) [VitaJoy Daily D] 25 mcg (1,000 unit) tablet,chewable 25 mcg PO DAILY magnesium oxide 400 mg magnesium capsule 400 mg PO BID Print Language: [place] Forms: Portal Instructions
--- NOTE | 2025-04-02 08:23 | SWNOTE1 ---
ISAAC stopped in and spoke with pt. Pt is being discharged today. She voiced she is going to go to [facility] for short term rehab stay. SW to see if [facility] has transport available today. ISACA sent message to Isabelle at [facility], waiting to hear back.
[2025-04-02 08:25] VITALS: BP 158/82; PULSE 66; TEMP 36.7; O2SAT 95
[2025-04-02] MEDS: CHOLECALCIFEROL (VITAMIN D3) 25 MCG/1,000 UNITS TABLET PO (08:40)
[2025-04-02] MEDS: CALCIUM CARBONATE 500 MG (200MG ELEMENTAL) TAB CHEW PO (08:40)
[2025-04-02] MEDS: MAGNESIUM OXIDE 400 MG TABLET PO (08:40)
[2025-04-02] MEDS: PANTOPRAZOLE SODIUM 40 MG VIAL IV (08:41)
[2025-04-02] MEDS: PROSTAT 15 GM PROTEIN/100 CAL 30 ML LIQUID PACKET PO (08:41)
[2025-04-02] MEDS: METOPROLOL TARTRATE 100 MG TABLET PO (08:41)
[2025-04-02] MEDS: LINEZOLID IN DEXTROSE 5% 600 MG/300 ML PIGGYBACK 300 MG IV (08:41)
[2025-04-02] MEDS: FERROUS SULFATE 325 MG TABLET PO (08:41)
[2025-04-02] MEDS: JUVEN PACKET 1 PACKET PO (08:41)
[2025-04-02] MEDS: CEFDINIR 300 MG CAPSULE PO (08:41)
[2025-04-02] MEDS: LOPERAMIDE HCL 1 MG/7.5 ML LIQUID PO (08:50)
--- NOTE | 2025-04-02 09:58 | SWNOTE1 ---
ISAAC spoke to Xochitl at [facility] and they do not have transportation available. ISAAC called and set up trips for 11-11:30. SW notified pt and nurse. SW called and let [facility] know as well and SW confirmed they did receive discharge orders as well. Pt is going skilled to [facility].
--- NOTE | 2025-04-02 10:03 | CM.NOTE ---
2nd Important Message From [employer] discussed with pt, pt denies any questions or concerns.
[2025-04-02 10:39] VITALS: O2SAT 95
[2025-04-02] MEDS: ACETAMINOPHEN 500 MG TABLET 1000 MG PO (10:57)
[2025-04-02 13:44] LABS: C. Difficile PCR NEGATIVE
== END 2025-04-02 11:19 | DRG 871 ==
LOC: ER 22:30 → MS 23:42
PROVIDERS: Personal Emergency Response Attendant; Registered Nurse; Admitting Provider Family Medicine; Emergency Provider Internal Medicine; PCP Nurse Practitioner Family; Visit Provider Family Medicine
DX: A41.52 Sepsis due to Pseudomonas (principal); E43 Unspecified severe protein-calorie malnutrition; N39.0 Urinary tract infection, site not specified; E87.20 Acidosis, unspecified; D62 Acute posthemorrhagic anemia; L03.116 Cellulitis of left lower limb; L03.115 Cellulitis of right lower limb; L97.919 Non-pressure chronic ulcer of unspecified part of right lower leg with unspecified severity; L97.929 Non-pressure chronic ulcer of unspecified part of left lower leg with unspecified severity; K92.2 Gastrointestinal hemorrhage, unspecified; Z68.43 Body mass index [BMI] 50.0-59.9, adult; A41.02 Sepsis due to Methicillin resistant Staphylococcus aureus; I89.0 Lymphedema, not elsewhere classified; E86.0 Dehydration; R62.7 Adult failure to thrive; Z90.49 Acquired absence of other specified parts of digestive tract; Z79.82 Long term (current) use of aspirin; Z79.899 Other long term (current) drug therapy; E66.01 Morbid (severe) obesity due to excess calories; L89.152 Pressure ulcer of sacral region, stage 2; E87.5 Hyperkalemia; E83.42 Hypomagnesemia; N18.30 Chronic kidney disease, stage 3 unspecified; I12.9 Hypertensive chronic kidney disease with stage 1 through stage 4 chronic kidney disease, or unspecified chronic kidney disease; D50.9 Iron deficiency anemia, unspecified; R73.9 Hyperglycemia, unspecified; L29.9 Pruritus, unspecified; I83.009 Varicose veins of unspecified lower extremity with ulcer of unspecified site; A41.59 Other Gram-negative sepsis; R19.7 Diarrhea, unspecified
CPT/HCPCS: 36415; 36430; 71045; 73590; 80053; 81001; 82800; 83605; 83735; 83880; 84100; 84443; 84484; 85007; 85025; 85027; 85652; 86140; 86850; 86900; 86901; 86923; 87040; 87045; 87046; 87070; 87075; 87077; 87086; 87088; 87186; 87427; 87493; 90471; 90715; 93005; 94761; 96365; 96366; 97110; 97161; 97165; 97530; 97535; 99285; G0328; J0696; J1938; J2020; J2919; J3370; P9016; Q0169